=== PATIENT | male | born 1960 | race Caucasian/White ===

== ENCOUNTER 2017-03-14 13:34 | Emergency (ER) | payer OTHER ==
[2017-03-14] MEDS ORDERED: Diphtheria,Pertussis(Acell),Tetanus Vaccine 0.5 ML SDV IM ONE (14:09)
[2017-03-14] MEDS ORDERED: Lidocaine 1% 10 ML MDV INJECT ONE (14:09)
--- NOTE | 2017-03-14 14:10 | EDM.PDOC ---
ED HPI GENERAL MEDICAL PROBLEM - General Chief Complaint: Laceration Stated Complaint: RIGHT POINTER FINGER LAC Time Seen by Provider: 03/14/17 14:09 Source of Information: Reports: Patient History Limitations: Reports: No Limitations - History of Present Illness INITIAL COMMENTS - FREE TEXT/NARRATIVE: 56-year-old male presents for evaluation treatment of injury to the right hand dorsal pointer finger over the proximal pharynx. Injury occurred prior to arrival in the ER. Patient reports he was wearing gloves and was using a band saw. States that the saw cut through his gloves while he was cutting some wood. He has full range of motion. No numbness or tingling. Reports a laceration to the right hand pointer finger. Is unsure of his last tetanus. Onset: Today Location: Reports: Upper Extremity, Right - Related Data Allergies Allergy/AdvReac Type Severity Reaction Status Date / Time No Known Allergies Allergy Verified 03/14/17 13:53 Home Meds: Home Meds Albuterol Sulfate 1 inh NEB Q4H PRN 03/14/17 [History] Albuterol [Proventil HFA] 2 puff INH Q4H PRN 03/14/17 [History] Budesonide/Formoterol Fumarate [Symbicort 160-4.5 Mcg Inhaler] 2 puff INH BID [History] Cephalexin 500 mg PO BID #20 capsule 03/14/17 [Rx] Levofloxacin [IJD: Levofloxacin] 750 mg PO DAILY 03/14/17 [History] Levothyroxine 112 mcg PO DAILY 03/14/17 [History] diphenhydrAMINE [Benadryl] 25 mg PO BEDTIME 03/14/17 [History] predniSONE [Prednisone] 50 mg PO DAILY 03/14/17 [History] ED ROS GENERAL - Review of Systems Review Of Systems: See Below Musculoskeletal: Reports: Hand Pain (right hand 2nd finger laceration and pain; reports no decreased ROM) Skin: Reports: Wound (3cm laceration to the right 2nd finger dorsal side) Neurological: Denies: Numbness, Tingling ED EXAM, SKIN/RASH Exam: See Below Exam Limited By: No Limitations General Appearance: Alert, WD/WN, No Apparent Distress Ears: Normal External Exam Nose: Normal Inspection Throat/Mouth: Normal Inspection, Normal Voice, No Airway Compromise Neck: Normal Inspection Respiratory/Chest: No Respiratory Distress Cardiovascular: Normal Peripheral Pulses, Regular Rate, Rhythm Peripheral Pulses: 2+: Radial (L), Radial (R) Extremities: Normal Range of Motion (patient is able to flex, extend, adduct, abduct right hand 2nd finger; able to make a fist and oppose fingers to thumb; reports sensation to light touch to the finger; 3 cm subcutaneous laceraiotn to the right hand dorsal 2nd fingerover the proximal phalnex), Normal Capillary Refill Neurological: Alert, Normal Cognition ED SKIN PROCEDURES - Laceration/Wound Repair Right Dorsal Finger Lac/Wound length In cm: 3 Appearance: Subcutaneous, Irregular Distal NVT: Neuro & Vascular Intact, No Tendon Injury Anesthetic Type: Local Local Anesthesia - Lidocaine (Xylocaine): 1% Plain Local Anesthetic Volume: 3cc Skin Prep: Chlorhexidine (Hibiciens), Saline, Sterile Drape Exploration/Debridement/Repair: Wound Explored, No Foreign Material Found Closed with: Sutures Suture Size: 4-0 # of Sutures: 11 Suture Type: Nylon, Interrupted, Simple Suture Size: other (5-0) # of Sutures: 6 Repaired with: Vicryl Sterile Dressing Applied: Nurse Tetanus Status Addressed: Yes Complications: No Course - Vital Signs Last Recorded V/S: Last Vital Signs Temp 36.3 C 03/14/17 14:03 Pulse 76 03/14/17 14:03 Resp 16 03/14/17 14:03 BP 147/97 H 03/14/17 14:03 Pulse Ox 95 03/14/17 14:03 - Orders/Labs/Meds Meds: Medications Discontinued Medications Generic Name Dose Route Start Last Admin Trade Name Julio PRN Reason Stop Dose Admin Diphtheria/Tetanus/Acell Pertussis 0.5 ml 03/14/17 14:09 03/14/17 14:52 Adacel IM 03/14/17 14:10 0.5 ml .ONCE ONE Administration Lidocaine HCl 10 ml 03/14/17 14:09 03/14/17 14:52 Xylocaine 1% INJECT 03/14/17 14:10 10 ml ONETIME ONE Administration - Re-Assessments/Exams Free Text/Narrative Re-Assessment/Exam: 03/14/17 16:12 17 sutures placed to the right hand dorsal first finger. 6 subcutaneous and 11 cutaneous sutures placed. The patient tolerated this well. There are no combinations. Discharge instructions as documented. Departure - Departure Time of Disposition: 16:12 Disposition: Home, Self-Care 01 Condition: Good Clinical Impression: Laceration - Discharge Information Prescriptions: Cephalexin 500 mg PO BID #20 capsule Instructions: Laceration Care, Adult Referrals: Eric Unger Jr, MD [Primary Care Provider] - Forms: ED Department Discharge Additional Instructions: cephalexin PO bid x 10 days. OTC ibuprofen or Tylenol as needed for pain relief. Monitor for signs of infection such as increased swelling, pus or redness. present to the clinic or the ER should these develop. Keep the wound covered. Have the sutures removed in 10 days. Wash with gentle soap and water twice a day. your primary Care provider can do this or the [facility] clinic located on the [place] [facility] of the [facility]. There are open 8 AM to 5 PM Friday through Friday. Please call [phone] to schedule the provider there. Recommend Leonela Haywood. Please return to the ER for symptoms change or worsen.
== END 2017-03-14 16:40 | disposition home or self-care (01) ==
LOC: JD.ED 13:34
DX: S61.411A Laceration without foreign body of right hand, initial encounter (principal); W31.2XXA Contact with powered woodworking and forming machines, initial encounter; E03.9 Hypothyroidism, unspecified; Z23 Encounter for immunization
CPT/HCPCS: 12002; 13132; 90471; 90715; 99283-25

== ENCOUNTER 2018-09-17 04:21 | Observation (INO) | payer OTHER ==
--- NOTE | 2018-09-16 13:29 | PCM.PREANE ---
<Larry Helms - Last Filed: 09/17/18 08:29> Preanesthetic Assessment - Anesthesia/Transfusion/Family Hx Anesthesia History: Prior Anesthesia Without Reaction Family History of Anesthesia Reaction: No Transfusion History: No Prior Transfusion(s) Intubation History: Unknown - Review of Systems General: No Symptoms Pulmonary: No Symptoms Cardiovascular: No Symptoms Gastrointestinal: No Symptoms Neurological: Pre-Existing Deficit - Physical Assessment NPO Status Time: 09:30 Weight: 92.986 kg Airway Class: Mallampati = 2 Dentition: Reports: Normal Dentition ROM/Head Extension: Full Lungs: Clear to Auscultation, Normal Respiratory Effort Cardiovascular: Regular Rate, Regular Rhythm, No Murmurs - Lab Values: Laboratory Last Values MRSA (PCR) Negative 09/08/18 16:25 - Allergies Allergies/Adverse Reactions: Allergies Allergy/AdvReac Type Severity Reaction Status Date / Time No Known Allergies Allergy Verified 03/14/17 13:53 - Acknowledgements Additional Comments: lumbar surgery L1-2 - in PreAnesthesia Questionnaire - HOME MEDS Home Medications: Home Meds Cholecalciferol (Vitamin D3) [Vitamin D3] 5,000 units PO DAILY 09/16/18 [History ] - CURRENT (IN HOUSE) MEDS Current Meds: Current Medications Acetaminophen (Tylenol) 975 mg PO ONETIME KT Stop: 09/17/18 12:00 Aspirin (Ecotrin) 325 mg PO BID KT Bisacodyl (Dulcolax) 5 mg PO DAILY PRN PRN Reason: Constipation Morphine Sulfate 8 mg/Epinephrine HCl 0.3 mg/Cefuroxime Sodium 750 mg/Ketorolac Tromethamine 30 mg/Sodium Chloride 27.9 ml 0 mg .XX ONETIME ONE Stop: 09/17/18 10:01 Cyclobenzaprine HCl (Flexeril) 10 mg PO TID PRN PRN Reason: Spasms Docusate Sodium (Colace) 100 mg PO BID KT Famotidine (Pepcid) 20 mg PO Q12H KT Lactated Ringer's (Ringers, Lactated) 1,000 mls @ 125 mls/hr IV ASDIRECTED KT Cefazolin Sodium/Dextrose 2 gm (/ Premix) 50 mls @ 100 mls/hr IV Q8H KT Stop: 09/17/18 22:59 Ketorolac Tromethamine (Toradol) 15 mg IVPUSH Q6H PRN PRN Reason: Pain Lidocaine/Sodium Bicarbonate (Buffered Lidocaine 1% In Ns 8.4%) 0.25 ml IDERM ONETIME PRN PRN Reason: Prior to IV Start Magnesium Hydroxide (Milk Of Magnesia) 30 ml PO BID PRN PRN Reason: Constipation Morphine Sulfate (Morphine) 2 mg IVPUSH Q2H PRN PRN Reason: Breakthrough Pain Naloxone HCl (Narcan) 0.1 mg IVPUSH Q5M PRN PRN Reason: Oversedation Ondansetron HCl (Zofran) 4 mg IVPUSH Q6H PRN PRN Reason: Nausea/Vomiting Oxycodone HCl (Oxycontin) 10 mg PO ONETIME KT Stop: 09/17/18 12:00 Oxycodone/Acetaminophen (Percocet 325-5 Mg) 1 - 2 tab PO Q4H PRN PRN Reason: Pain Pregabalin (Lyrica) 50 mg PO ONETIME KT Stop: 09/17/18 12:00 Senna (Senna) 8.6 mg PO BID PRN PRN Reason: Constipation Sodium Chloride (Saline Flush) 10 ml FLUSH ASDIRECTED PRN PRN Reason: Keep Vein Open Discontinued Medications Acetaminophen (Tylenol) 650 mg PO ONETIME KT Stop: 09/17/18 12:00 <Katharina Gallagher - Last Filed: 09/17/18 09:04> Preanesthetic Assessment - Review of Systems Pulmonary: No Symptoms (1/3 can/day times 40 years) Gastrointestinal: No Symptoms (GERD on occasion) Neurological: No Symptoms (Lumbar back surgeries times 2 1987) Other: Reports: Easy Bleeding - Physical Assessment NPO Status Date: 09/16/18 NPO Status Time: 19:00 Pulse: 89 O2 Sat by Pulse Oximetry: 93 Respiratory Rate: 16 Blood Pressure: 133/93 Temperature: 36.4 C Height: 1.7 m ASA Class: 2 Mental Status: Alert & Oriented x3 Dentition: Reports: Caries Thyro-Mental Finger Breadths: 3 Mouth Opening Finger Breadths: 3 - Lab Values: Laboratory Last Values MRSA (PCR) Negative 09/08/18 16:25 All lab values reviewed and noted and within acceptable ranges to proceed with scheduled procedure. - Imaging/EKG Impressions: EKG: SR rate= 58 CXR: mild hyperinflation - Anesthesia Plan Pre-Op Medication Ordered: None, Other (preop meds: lyrica, oxycontin, tylenol at 0830) - Acknowledgements Anesthesia Type Planned: General Anesthesia, Spinal Pt an Appropriate Candidate for the Planned Anesthesia: Yes Alternatives and Risks of Anesthesia Discussed w Pt/Guardian: Yes Pt/Guardian Understands and Agrees with Anesthesia Plan: Yes PreAnesthesia Questionnaire - Past Health History Medical/Surgical History: Denies Medical/Surgical History
[2018-09-17] MEDS ORDERED: Acetaminophen 325 MG Tab PO SCH ×2 (06:00→07:05)
[2018-09-17] MEDS ORDERED: Pregabalin 25 MG Cap PO SCH (06:00)
[2018-09-17] MEDS ORDERED: oxyCODONE ER 10 MG TAB.ER PO SCH (06:00)
[2018-09-17] MEDS ORDERED: Lactated Ringers 1,000 ML IV SCH (07:12)
[2018-09-17] MEDS ORDERED: Sodium Chloride 0.9% 10 ML Syringe FLUSH PRN (07:12)
[2018-09-17] MEDS ORDERED: Lidocaine 1%/Sod Bicarbonate in NS 8.4% 1 ML Syringe IDERM PRN (07:12)
[2018-09-17] MEDS ORDERED: Midazolam 1 MG/ML 2 ML SDV IVPUSH SCH (09:15)
[2018-09-17] MEDS ORDERED: Midazolam 1 MG/ML 2 ML SDV ONE ×7 (09:30→11:08)
[2018-09-17] MEDS ORDERED: ceFAZolin 1 GM Vial ONE ×2 (09:52)
[2018-09-17] MEDS ORDERED: Ondansetron 4 MG/2 ML SDV ONE (10:05)
[2018-09-17] MEDS ORDERED: Ketorolac 30 MG/ML SDV ONE (10:06)
[2018-09-17] MEDS ORDERED: Propofol 200 MG/20 ML SDV ONE ×2 (10:11→11:24)
[2018-09-17] MEDS: Iodine/Sodium Iodide 2% Tincture 30 ML Bottle ONE ×2 (10:39→11:11)
[2018-09-17] MEDS: Bupivacaine 0.25% 30 ML SDV ONE ×2 (10:39→11:20)
[2018-09-17] MEDS: ceFAZolin 1 GM Vial ONE ×2 (10:39→11:15)
[2018-09-17] MEDS: Morphine 8 MG, EPINEPHrine 0.3 MG, Cefuroxime 750 MG, Ketorolac 30 MG, Sodium Chloride ... ONE ×10 (10:40→11:19)
[2018-09-17] MEDS: Vancomycin 1 GM SDV ONE ×2 (10:41→11:21)
[2018-09-17] MEDS ORDERED: Naloxone 0.4 MG/ML SDV IVPUSH PRN (11:00)
[2018-09-17] MEDS ORDERED: Morphine 2 MG/ML Syringe IVPUSH PRN (11:00)
[2018-09-17] MEDS ORDERED: Cyclobenzaprine 10 MG Tab PO PRN (11:00)
[2018-09-17] MEDS ORDERED: Magnesium Hydroxide 400 MG/5 ML Susp 30 ML Cup PO PRN (11:00)
[2018-09-17] MEDS ORDERED: Ondansetron 4 MG/2 ML SDV IVPUSH PRN (11:00)
[2018-09-17] MEDS ORDERED: Bisacodyl 5 MG Tab PO PRN (11:00)
[2018-09-17] MEDS ORDERED: Sennosides 8.6 MG Tab PO PRN (11:00)
[2018-09-17] MEDS ORDERED: HYDROmorphone 0.5 MG/0.5 ML Syringe ONE ×2 (11:09→11:10)
[2018-09-17] MEDS ORDERED: Flumazenil 0.1 MG/ML 5 ML MDV ONE (11:52)
--- NOTE | 2018-09-17 12:06 | PCM.POSTAN ---
POST ANESTHESIA ASSESSMENT - RESPIRATORY Respiratory Status: Respiratory Rate WNL, Airway Patent, O2 Saturation Stable, Supplemental Oxygen - CARDIOVASCULAR CV Status: Pulse Rate WNL, Blood Pressure Stable - GASTROINTESTINAL GI Status: No Symptoms - POST OP HYDRATION Hydration Status: Adequate & Stable
--- NOTE | 2018-09-17 13:33 | CR ---
Pelvis and left hip: AP view of the pelvis was obtained as well as lateral view of the left hip. Comparison: No prior hip or pelvis exam. Left hip prosthesis is seen. Components are aligned. Underlying bony structures are intact. Minimal disc space narrowing is seen superiorly within the right hip. No additional abnormality is seen. Impression: 1. Left hip prosthesis which appears satisfactory in alignment. 2. Minimal joint space narrowing within the superior right hip. 3. Pelvis and left hip study are otherwise unremarkable. Diagnostic code #2
[2018-09-17] MEDS: Ketorolac 15 MG/ML SDV IVPUSH PRN (17:43)
[2018-09-17] MEDS: ceFAZolin 2 GM in Premix Bag 1 BAG IV SCH (17:47)
[2018-09-17] MEDS: Famotidine 20 MG Tab PO SCH (20:05)
[2018-09-17] MEDS: Docusate Sodium 100 MG Cap PO SCH (20:06)
[2018-09-18] MEDS: ceFAZolin 2 GM in Premix Bag 1 BAG IV SCH ×2 (01:46→09:38)
[2018-09-18] MEDS: Acetaminophen/oxyCODONE 325-5 MG Tab PO PRN ×2 (01:50→08:21)
--- NOTE | 2018-09-18 07:53 | PCM48HPAN ---
Post Anesthesia Note - EVALUATION WITHIN 48HRS OF ANESTHETIC Vital Signs in Normal Range: Yes Patient Participated in Evaluation: Yes Respiratory Function Stable: Yes Airway Patent: Yes Cardiovascular Function Stable: Yes Hydration Status Stable: Yes Pain Control Satisfactory: Yes Nausea and Vomiting Control Satisfactory: Yes Mental Status Recovered: Yes Pulse Rate: 89 Resp Rate: 16 Temperature: 36.5 C Blood Pressure: 138/73 - COMMENTS/OBSERVATIONS Free Text/Narrative:: no anesthesia complications noted
--- NOTE | 2018-09-18 08:04 | PCM.SURGPN ---
- General Info Date of Service: 09/18/18 POD#: 1 Functional Status: Reports: Pain Controlled, Tolerating Diet, Ambulating, Urinating, Incentive Spirometry, Other (Nursing and the pt state the pt has been doing well. ) - Patient Data Vitals - Most Recent: Last Vital Signs Temp 97.7 F 09/18/18 07:53 Pulse 89 09/18/18 07:53 Resp 16 09/18/18 07:53 BP 138/73 09/18/18 07:53 Pulse Ox 92 L 09/18/18 06:26 Weight - Most Recent: 213 lb 14.4 oz I&O - Last 24 Hours: Intake & Output 09/17/18 09/18/18 09/18/18 22:59 06:59 14:59 Intake Total 1400 1300 Output Total 450 Balance 1400 850 Lab Results Last 24 Hrs: Laboratory Results - last 24 hr 09/17/18 09/17/18 09/17/18 Range/Units 08:20 08:20 08:20 WBC (4.23-9.07) K/mm3 RBC (4.63-6.08) M/mm3 Hgb (13.7-17.5) gm/L Hct (40.1-51.0) % MCV (79.0-92.2) fl MCH (25.7-32.2) pg MCHC (32.2-35.5) g/dl RDW Std Deviation (35.1-43.9) fL Plt Count (163-337) K/mm3 MPV (9.4-12.3) fl PT 10.6 (9.5-12.1) SECONDS INR 0.97 APTT 28 (24-31) SECONDS Sodium (136-145) mEq/L Potassium (3.5-5.1) mEq/L Chloride (98-107) mEq/L Carbon Dioxide (21-32) mEq/L Anion Gap (5-15) BUN (7-18) mg/dL Creatinine (0.7-1.3) mg/dL Est Cr Clr Drug Dosing mL/min Estimated GFR (MDRD) (>60) mL/min BUN/Creatinine Ratio (14-18) Glucose (74-106) mg/dL Calcium (8.5-10.1) mg/dL Total Bilirubin (0.2-1.0) mg/dL AST (15-37) U/L ALT (16-63) U/L Alkaline Phosphatase (46-116) U/L Total Protein (6.4-8.2) g/dl Albumin (3.4-5.0) g/dl Globulin gm/dL Albumin/Globulin Ratio (1-2) Blood Type B NEGATIVE Gel Antibody Screen Negative 09/18/18 09/18/18 Range/Units 05:38 05:38 WBC 8.84 (4.23-9.07) K/mm3 RBC 4.15 L (4.63-6.08) M/mm3 Hgb 12.9 L (13.7-17.5) gm/L Hct 38.1 L (40.1-51.0) % MCV 91.8 (79.0-92.2) fl MCH 31.1 (25.7-32.2) pg MCHC 33.9 (32.2-35.5) g/dl RDW Std Deviation 38.8 (35.1-43.9) fL Plt Count 224 (163-337) K/mm3 MPV 9.3 L (9.4-12.3) fl PT (9.5-12.1) SECONDS INR APTT (24-31) SECONDS Sodium 134 L (136-145) mEq/L Potassium 4.5 (3.5-5.1) mEq/L Chloride 101 (98-107) mEq/L Carbon Dioxide 26 (21-32) mEq/L Anion Gap 11.5 (5-15) BUN 23 H (7-18) mg/dL Creatinine 1.3 (0.7-1.3) mg/dL Est Cr Clr Drug Dosing 57.91 mL/min Estimated GFR (MDRD) 57 (>60) mL/min BUN/Creatinine Ratio 17.7 (14-18) Glucose 114 H (74-106) mg/dL Calcium 8.8 (8.5-10.1) mg/dL Total Bilirubin 0.4 (0.2-1.0) mg/dL AST 26 (15-37) U/L ALT 22 (16-63) U/L Alkaline Phosphatase 42 L (46-116) U/L Total Protein 6.2 L (6.4-8.2) g/dl Albumin 3.0 L (3.4-5.0) g/dl Globulin 3.2 gm/dL Albumin/Globulin Ratio 0.9 L (1-2) Blood Type Gel Antibody Screen Med Orders - Current: Current Medications Aspirin (Ecotrin) 325 mg PO BID [facility] Bisacodyl (Dulcolax) 5 mg PO DAILY PRN PRN Reason: Constipation Cyclobenzaprine HCl (Flexeril) 10 mg PO TID PRN PRN Reason: Spasms Docusate Sodium (Colace) 100 mg PO BID [facility] Last Admin: 09/17/18 20:06 Dose: 100 mg Famotidine (Pepcid) 20 mg PO Q12H [facility] Last Admin: 09/17/18 20:05 Dose: 20 mg Cefazolin Sodium/Dextrose 2 gm (/ Premix) 50 mls @ 100 mls/hr IV Q8H [facility] Stop: 09/18/18 10:29 Last Admin: 09/18/18 01:46 Dose: 100 mls/hr Ketorolac Tromethamine (Toradol) 15 mg IVPUSH Q6H PRN PRN Reason: Pain Last Admin: 09/17/18 17:43 Dose: 15 mg Magnesium Hydroxide (Milk Of Magnesia) 30 ml PO BID PRN PRN Reason: Constipation Morphine Sulfate (Morphine) 2 mg IVPUSH Q2H PRN PRN Reason: Breakthrough Pain Naloxone HCl (Narcan) 0.1 mg IVPUSH Q5M PRN PRN Reason: Oversedation Ondansetron HCl (Zofran) 4 mg IVPUSH Q6H PRN PRN Reason: Nausea/Vomiting Oxycodone/Acetaminophen (Percocet 325-5 Mg) 1 - 2 tab PO Q4H PRN PRN Reason: Pain Last Admin: 09/18/18 01:50 Dose: 1 tab Senna (Senna) 8.6 mg PO BID PRN PRN Reason: Constipation Sodium Chloride (Saline Flush) 10 ml FLUSH ASDIRECTED PRN PRN Reason: Keep Vein Open Discontinued Medications Acetaminophen (Tylenol) 975 mg PO ONETIME [facility] Stop: 09/17/18 12:00 Last Admin: 09/17/18 08:29 Dose: 975 mg Bupivacaine HCl (Marcaine 0.25%) Confirm Administered Dose 30 ml .ROUTE .STK- MED ONE Stop: 09/17/18 08:29 Last Admin: 09/17/18 11:20 Dose: 30 ml Cefazolin Sodium (Ancef) Confirm Administered Dose 2 gm .ROUTE .STK-MED ONE Stop: 09/17/18 08:29 Last Admin: 09/17/18 11:15 Dose: 2 gm Cefazolin Sodium (Ancef) Confirm Administered Dose 1 gm .ROUTE .STK-MED ONE Stop: 09/17/18 09:53 Cefazolin Sodium (Ancef) Confirm Administered Dose 1 gm .ROUTE .STK-MED ONE Stop: 09/17/18 09:53 Morphine Sulfate 8 mg/Epinephrine HCl 0.3 mg/Cefuroxime Sodium 750 mg/Ketorolac Tromethamine 30 mg/Sodium Chloride 27.9 ml 0 mg .XX ONETIME ONE Stop: 09/17/18 10:01 Last Admin: 09/17/18 11:19 Dose: 788.3 mg Flumazenil (Romazicon) Confirm Administered Dose 0.5 mg .ROUTE .[facility]-MED ONE Stop: 09/17/18 11:53 Hydromorphone HCl (Dilaudid) Confirm Administered Dose 0.5 mg .ROUTE .STK-MED ONE Stop: 09/17/18 11:10 Hydromorphone HCl (Dilaudid) Confirm Administered Dose 0.5 mg .ROUTE .K-MED ONE Stop: 09/17/18 11:11 Lactated Ringer's (Ringers, Lactated) 1,000 mls @ 125 mls/hr IV ASDIRECTED KT Stop: 09/17/18 23:00 Last Admin: 09/17/18 08:20 Dose: 125 mls/hr Iodine (Iodine 2% Mild Tincture) Confirm Administered Dose 30 ml .ROUTE .STK- MED ONE Stop: 09/17/18 08:29 Last Admin: 09/17/18 11:11 Dose: 18 ml Ketorolac Tromethamine (Toradol) Confirm Administered Dose 30 mg .ROUTE .[facility]- MED ONE Stop: 09/17/18 10:07 Lidocaine/Sodium Bicarbonate (Buffered Lidocaine 1% In Ns 8.4%) 0.25 ml IDERM ONETIME PRN PRN Reason: Prior to IV Start Stop: 09/17/18 14:00 Last Admin: 09/17/18 08:20 Dose: 0.25 ml Midazolam HCl (Versed 1 Mg/Ml) 2 mg IVPUSH ONETIME KT Stop: 09/17/18 14:00 Last Admin: 09/17/18 09:22 Dose: 2 mg Midazolam HCl (Versed 1 Mg/Ml) Confirm Administered Dose 2 mg .ROUTE .STK-MED ONE Stop: 09/17/18 09:31 Midazolam HCl (Versed 1 Mg/Ml) Confirm Administered Dose 2 mg .ROUTE .STK-MED ONE Stop: 09/17/18 09:54 Midazolam HCl (Versed 1 Mg/Ml) Confirm Administered Dose 2 mg .ROUTE .STK-MED ONE Stop: 09/17/18 10:09 Midazolam HCl (Versed 1 Mg/Ml) Confirm Administered Dose 2 mg .ROUTE .STK-MED ONE Stop: 09/17/18 10:10 Midazolam HCl (Versed 1 Mg/Ml) Confirm Administered Dose 2 mg .ROUTE .STK-MED ONE Stop: 09/17/18 10:37 Midazolam HCl (Versed 1 Mg/Ml) Confirm Administered Dose 2 mg .ROUTE .STK-MED ONE Stop: 09/17/18 11:08 Midazolam HCl (Versed 1 Mg/Ml) Confirm Administered Dose 2 mg .ROUTE .STK-MED ONE Stop: 09/17/18 11:09 Ondansetron HCl (Zofran) Confirm Administered Dose 4 mg .ROUTE .STK-MED ONE Stop: 09/17/18 10:06 Oxycodone HCl (Oxycontin) 10 mg PO ONETIME [facility] Stop: 09/17/18 12:00 Last Admin: 09/17/18 08:30 Dose: 10 mg Pregabalin (Lyrica) 50 mg PO ONETIME [facility] Stop: 09/17/18 12:00 Last Admin: 09/17/18 08:30 Dose: 50 mg Propofol (Diprivan 20 Ml) Confirm Administered Dose 200 mg .ROUTE .STK-MED ONE Stop: 09/17/18 10:12 Propofol (Diprivan 20 Ml) Confirm Administered Dose 200 mg .ROUTE .STK-MED ONE Stop: 09/17/18 11:25 Tranexamic Acid (Cyklokapron) Confirm Administered Dose 1,000 mg .ROUTE .STK- MED ONE Stop: 09/17/18 08:28 Last Admin: 09/17/18 11:22 Dose: 1,000 mg Vancomycin HCl (Vancomycin) Confirm Administered Dose 1 gm .ROUTE .STK-MED ONE Stop: 09/17/18 08:29 Last Admin: 09/17/18 11:21 Dose: 1 gm - Exam Wound/Incisions: Dressing Dry and Intact General: Alert, Cooperative, No Acute Distress Lungs: Normal Respiratory Effort Extremities: Other (NVS intact for LLE. Left thigh soft, nontender. Corine's negative.) - Problem List Review Problem List Initiated/Reviewed/Updated: Yes - My Orders Last 24 Hours: Active Orders 24 hr Category Date Time Status Patient Status [ADT] Routine ADT 09/17/18 13:29 Active Ready for Discharge [RC] PER UNIT ROUTINE Care 09/18/18 08:02 Ordered Regular Diet [DIET] Diet 09/17/18 Lunch Active Acetaminophen/oxyCODONE [Percocet 325-5 MG] Med 09/17/18 11:00 Active 1 - 2 tab PO Q4H PRN Aspirin [Ecotrin] Med 09/18/18 09:00 Active 325 mg PO BID Bisacodyl [Dulcolax] Med 09/17/18 11:00 Active 5 mg PO DAILY PRN Cyclobenzaprine [Flexeril] Med 09/17/18 11:00 Active 10 mg PO TID PRN Docusate Sodium [Colace] Med 09/17/18 21:00 Active 100 mg PO BID Famotidine [Pepcid] Med 09/17/18 21:00 Active 20 mg PO Q12H Ketorolac [Toradol] Med 09/17/18 11:00 Active 15 mg IVPUSH Q6H PRN Magnesium Hydroxide [Milk of Magnesia] Med 09/17/18 11:00 Active 30 ml PO BID PRN Morphine Med 09/17/18 11:00 Active 2 mg IVPUSH Q2H PRN Naloxone [Narcan] Med 09/17/18 11:00 Active 0.1 mg IVPUSH Q5M PRN Ondansetron [Zofran] Med 09/17/18 11:00 Active 4 mg IVPUSH Q6H PRN Sennosides [Senna] Med 09/17/18 11:00 Active 8.6 mg PO BID PRN Sodium Chloride 0.9% [Saline Flush] Med 09/17/18 07:12 Active 10 ml FLUSH ASDIRECTED PRN ceFAZolin [Ancef] 2 gm Med 09/17/18 18:00 Active Premix Bag 1 bag IV Q8H Peripheral IV Insertion Adult [OM.PC] Routine Oth 09/17/18 07:12 Ordered Medication Orders Aspirin (Ecotrin) 325 mg PO BID KT Bisacodyl (Dulcolax) 5 mg PO DAILY PRN PRN Reason: Constipation Cyclobenzaprine HCl (Flexeril) 10 mg PO TID PRN PRN Reason: Spasms Docusate Sodium (Colace) 100 mg PO BID [facility] Last Admin: 09/17/18 20:06 Dose: 100 mg Famotidine (Pepcid) 20 mg PO Q12H [facility] Last Admin: 09/17/18 20:05 Dose: 20 mg Cefazolin Sodium/Dextrose 2 gm (/ Premix) 50 mls @ 100 mls/hr IV Q8H [facility] Stop: 09/18/18 10:29 Last Admin: 09/18/18 01:46 Dose: 100 mls/hr Infusion: 09/17/18 18:17 Dose: 100 mls/hr Admin: 09/17/18 17:47 Dose: 100 mls/hr Ketorolac Tromethamine (Toradol) 15 mg IVPUSH Q6H PRN PRN Reason: Pain Last Admin: 09/17/18 17:43 Dose: 15 mg Magnesium Hydroxide (Milk Of Magnesia) 30 ml PO BID PRN PRN Reason: Constipation Morphine Sulfate (Morphine) 2 mg IVPUSH Q2H PRN PRN Reason: Breakthrough Pain Naloxone HCl (Narcan) 0.1 mg IVPUSH Q5M PRN PRN Reason: Oversedation Ondansetron HCl (Zofran) 4 mg IVPUSH Q6H PRN PRN Reason: Nausea/Vomiting Oxycodone/Acetaminophen (Percocet 325-5 Mg) 1 - 2 tab PO Q4H PRN PRN Reason: Pain Last Admin: 09/18/18 01:50 Dose: 1 tab Senna (Senna) 8.6 mg PO BID PRN PRN Reason: Constipation Sodium Chloride (Saline Flush) 10 ml FLUSH ASDIRECTED PRN PRN Reason: Keep Vein Open - Assessment Assessment (Free Text/Narrative):: POD#1 - s/p left BOBBY - Plan Plan (Free Text/Narrative):: 1. Hgb 12.9. 2. ASA PO BID, frequent mobility, TEDs. 3. BOBBY precautions. 4. Discharge to home today. The pt's case was discussed with Dr. Freedman.
--- NOTE | 2018-09-18 08:07 | PCM.DCSUM1 ---
Discharge Summary - Hospital Course Brief History: Adrian is a 57 yo male who underwent left BOBBY with Dr. Freedman on . The procedure was completed under spinal anesthesia with sedation. The pt tolerated the procedure well and was admitted to the Medical-Surgical Unit. The pt's Hgb on POD#1 was 12.9. On POD#1, 325mg ASA BID was initiated for VTE prophylaxis. SCDs and TEDs were also ordered. A Mepilex dressing was placed at the incision site at the time of surgery and remained clean and dry. The pt participated in P.T. and O.T. and progressed well. He followed the BOBBY precautions. The pt was allowed to WBAT. On POD#1, the pt was deemed appropriate to discharge to home. - Discharge Data Discharge Date: 09/18/18 Discharge Disposition: Home, Self-Care 01 Condition: Good - Patient Summary/Data Consults: Consultations 09/17/18 06:25 OT Evaluation and Treatment [CONS] Routine PT Evaluation and Treatment [CONS] Routine - Patient Instructions Diet: Usual Diet as Tolerated Activity: Apply Ice, As Tolerated, Elevate Extremity, Full Weight Bearing Activity, Other: Follow the total hip precautions. Driving: Do Not Drive Showering/Bathing: May Shower Wound/Incision Care: Keep Operative Site/Wound Site Clean and Dry, Do NOT Change Dressing Notify Provider of: Fever, Increased Pain, Swelling and Redness, Drainage, Nausea and/or Vomiting Other/Special Instructions: Please get up and moving around EVERY HOUR while awake. This helps to prevent blood clots. Please use your walker and have help with mobility as needed. Take a short walk in your home every hour while awake. Please take 325mg Aspirin TWICE daily. The aspirin is being used for blood clot prevention and not for pain management so please do not miss a dose of the medication. You could use a medication like Zantac or Pepcid and a medication like Prilosec or Nexium to protect your stomach while you are using the aspirin. At home, please complete the exercises that you learned during the Hospital stay. Schedule for physical therapy. Use the pain medication as needed. The medication may cause drowsiness and constipation. Contact your primary care provider for instructions if you are constipated. You may use a stool softener like docusate sodium or Colace 100mg twice daily and/or a laxative like Miralax daily for constipation. Increase your water and fiber intake while you are using the pain medication. Discontinue use of the pain medication as soon as able. Please do not use other medications that may cause drowsiness (other pain medications, anxiety pills, cold medications, sleeping pills, etc) while using the prescription pain medication. Do not use alcohol while using the pain medication. You may use acetaminophen or Tylenol for pain management, however, please ensure you are not using over 4000 mg or 4 grams of acetaminophen per day from all sources. Your pain medication has 325mg of acetaminophen per tablet. At this time, please do not use ibuprofen (Motrin, Advil) or naproxen (Aleve) for pain management as you are using the aspirin. When the aspirin course is completed in 4 to 6 weeks, you could use ibuprofen or naproxen for pain management (if this is allowed by your primary care provider). Wear the AUR[place]A hose during the day and you may remove these at night. Elevate the limb to decrease swelling. Place ice to the area often. Place a towel between your skin and the blue pad. Use the incentive spirometer often. Take deep breaths throughout the day. Please keep the dressing in place until follow-up. Notify the Clinic if the dressing becomes saturated. Increase your protein intake while you are healing. If you have diabetes, please closely monitor your blood sugars and notify your primary care provider with abnormal values. Elevated blood sugars increases the risk of infection. Call the Clinic with questions or concerns - [phone]. - Discharge Plan *PRESCRIPTION DRUG MONITORING PROGRAM REVIEWED*: No *COPY OF PRESCRIPTION DRUG MONITORING REPORT IN PATIENT RUSSELL: No Prescriptions/Med Rec: Acetaminophen/oxyCODONE [Percocet 325-5 MG] 1 - 2 tab PO Q4H PRN #60 tablet PRN Reason: Pain Aspirin [Ecotrin] 325 mg PO BID #84 tab.ec Cyclobenzaprine [Flexeril] 10 mg PO TID PRN #40 tablet PRN Reason: Spasms Home Medications: Home Meds Cholecalciferol (Vitamin D3) [Vitamin D3] 5,000 units PO DAILY 09/16/18 [History ] Acetaminophen/oxyCODONE [Percocet 325-5 MG] 1 - 2 tab PO Q4H PRN #60 tablet [Rx] Aspirin [Ecotrin] 325 mg PO BID #84 tab.ec 09/17/18 [Rx] Bisacodyl [Dulcolax] 5 mg PO DAILY PRN tablet 09/17/18 [Rx] Cyclobenzaprine [Flexeril] 10 mg PO TID PRN #40 tablet 09/17/18 [Rx] Docusate Sodium [Colace] 100 mg PO BID cap 09/17/18 [Rx] Famotidine [Pepcid] 20 mg PO Q12H tablet 09/17/18 [Rx] Magnesium Hydroxide [Milk of Magnesia] 30 ml PO BID PRN cup 09/17/18 [Rx] Sennosides [Senna] 8.6 mg PO BID PRN tablet 09/17/18 [Rx] Referrals: Cheryl Tenorio PA-C [Physician Archivist] - - Discharge Summary/Plan Comment DC Time >30 min.: No - Patient Data Vitals - Most Recent: Last Vital Signs Temp 97.7 F 09/18/18 07:53 Pulse 89 09/18/18 07:53 Resp 16 09/18/18 07:53 BP 138/73 09/18/18 07:53 Pulse Ox 92 L 09/18/18 06:26 Weight - Most Recent: 213 lb 14.4 oz I&O - Last 24 hours: Intake & Output 09/17/18 09/18/18 09/18/18 22:59 06:59 14:59 Intake Total 1400 1300 Output Total 450 Balance 1400 850 Lab Results - Last 24 hrs: Laboratory Results - last 24 hr 09/17/18 09/17/18 09/17/18 Range/Units 08:20 08:20 08:20 WBC (4.23-9.07) K/mm3 RBC (4.63-6.08) M/mm3 Hgb (13.7-17.5) gm/L Hct (40.1-51.0) % MCV (79.0-92.2) fl MCH (25.7-32.2) pg MCHC (32.2-35.5) g/dl RDW Std Deviation (35.1-43.9) fL Plt Count (163-337) K/mm3 MPV (9.4-12.3) fl PT 10.6 (9.5-12.1) SECONDS INR 0.97 APTT 28 (24-31) SECONDS Sodium (136-145) mEq/L Potassium (3.5-5.1) mEq/L Chloride (98-107) mEq/L Carbon Dioxide (21-32) mEq/L Anion Gap (5-15) BUN (7-18) mg/dL Creatinine (0.7-1.3) mg/dL Est Cr Clr Drug Dosing mL/min Estimated GFR (MDRD) (>60) mL/min BUN/Creatinine Ratio (14-18) Glucose (74-106) mg/dL Calcium (8.5-10.1) mg/dL Total Bilirubin (0.2-1.0) mg/dL AST (15-37) U/L ALT (16-63) U/L Alkaline Phosphatase (46-116) U/L Total Protein (6.4-8.2) g/dl Albumin (3.4-5.0) g/dl Globulin gm/dL Albumin/Globulin Ratio (1-2) Blood Type B NEGATIVE Gel Antibody Screen Negative 09/18/18 09/18/18 Range/Units 05:38 05:38 WBC 8.84 (4.23-9.07) K/mm3 RBC 4.15 L (4.63-6.08) M/mm3 Hgb 12.9 L (13.7-17.5) gm/L Hct 38.1 L (40.1-51.0) % MCV 91.8 (79.0-92.2) fl MCH 31.1 (25.7-32.2) pg MCHC 33.9 (32.2-35.5) g/dl RDW Std Deviation 38.8 (35.1-43.9) fL Plt Count 224 (163-337) K/mm3 MPV 9.3 L (9.4-12.3) fl PT (9.5-12.1) SECONDS INR APTT (24-31) SECONDS Sodium 134 L (136-145) mEq/L Potassium 4.5 (3.5-5.1) mEq/L Chloride 101 (98-107) mEq/L Carbon Dioxide 26 (21-32) mEq/L Anion Gap 11.5 (5-15) BUN 23 H (7-18) mg/dL Creatinine 1.3 (0.7-1.3) mg/dL Est Cr Clr Drug Dosing 57.91 mL/min Estimated GFR (MDRD) 57 (>60) mL/min BUN/Creatinine Ratio 17.7 (14-18) Glucose 114 H (74-106) mg/dL Calcium 8.8 (8.5-10.1) mg/dL Total Bilirubin 0.4 (0.2-1.0) mg/dL AST 26 (15-37) U/L ALT 22 (16-63) U/L Alkaline Phosphatase 42 L (46-116) U/L Total Protein 6.2 L (6.4-8.2) g/dl Albumin 3.0 L (3.4-5.0) g/dl Globulin 3.2 gm/dL Albumin/Globulin Ratio 0.9 L (1-2) Blood Type Gel Antibody Screen Med Orders - Current: Current Medications Aspirin (Ecotrin) 325 mg PO BID KT Bisacodyl (Dulcolax) 5 mg PO DAILY PRN PRN Reason: Constipation Cyclobenzaprine HCl (Flexeril) 10 mg PO TID PRN PRN Reason: Spasms Docusate Sodium (Colace) 100 mg PO BID [facility] Last Admin: 09/17/18 20:06 Dose: 100 mg Famotidine (Pepcid) 20 mg PO Q12H [facility] Last Admin: 09/17/18 20:05 Dose: 20 mg Cefazolin Sodium/Dextrose 2 gm (/ Premix) 50 mls @ 100 mls/hr IV Q8H [facility] Stop: 09/18/18 10:29 Last Admin: 09/18/18 01:46 Dose: 100 mls/hr Ketorolac Tromethamine (Toradol) 15 mg IVPUSH Q6H PRN PRN Reason: Pain Last Admin: 09/17/18 17:43 Dose: 15 mg Magnesium Hydroxide (Milk Of Magnesia) 30 ml PO BID PRN PRN Reason: Constipation Morphine Sulfate (Morphine) 2 mg IVPUSH Q2H PRN PRN Reason: Breakthrough Pain Naloxone HCl (Narcan) 0.1 mg IVPUSH Q5M PRN PRN Reason: Oversedation Ondansetron HCl (Zofran) 4 mg IVPUSH Q6H PRN PRN Reason: Nausea/Vomiting Oxycodone/Acetaminophen (Percocet 325-5 Mg) 1 - 2 tab PO Q4H PRN PRN Reason: Pain Last Admin: 09/18/18 01:50 Dose: 1 tab Senna (Senna) 8.6 mg PO BID PRN PRN Reason: Constipation Sodium Chloride (Saline Flush) 10 ml FLUSH ASDIRECTED PRN PRN Reason: Keep Vein Open Discontinued Medications Acetaminophen (Tylenol) 975 mg PO ONETIME KT Stop: 09/17/18 12:00 Last Admin: 09/17/18 08:29 Dose: 975 mg Bupivacaine HCl (Marcaine 0.25%) Confirm Administered Dose 30 ml .ROUTE .STK- MED ONE Stop: 09/17/18 08:29 Last Admin: 09/17/18 11:20 Dose: 30 ml Cefazolin Sodium (Ancef) Confirm Administered Dose 2 gm .ROUTE .STK-MED ONE Stop: 09/17/18 08:29 Last Admin: 09/17/18 11:15 Dose: 2 gm Cefazolin Sodium (Ancef) Confirm Administered Dose 1 gm .ROUTE .STK-MED ONE Stop: 09/17/18 09:53 Cefazolin Sodium (Ancef) Confirm Administered Dose 1 gm .ROUTE .STK-MED ONE Stop: 09/17/18 09:53 Morphine Sulfate 8 mg/Epinephrine HCl 0.3 mg/Cefuroxime Sodium 750 mg/Ketorolac Tromethamine 30 mg/Sodium Chloride 27.9 ml 0 mg .XX ONETIME ONE Stop: 09/17/18 10:01 Last Admin: 09/17/18 11:19 Dose: 788.3 mg Flumazenil (Romazicon) Confirm Administered Dose 0.5 mg .ROUTE .STK-MED ONE Stop: 09/17/18 11:53 Hydromorphone HCl (Dilaudid) Confirm Administered Dose 0.5 mg .ROUTE .STK-MED ONE Stop: 09/17/18 11:10 Hydromorphone HCl (Dilaudid) Confirm Administered Dose 0.5 mg .ROUTE .STK-MED ONE Stop: 09/17/18 11:11 Lactated Ringer's (Ringers, Lactated) 1,000 mls @ 125 mls/hr IV ASDIRECTED KT Stop: 09/17/18 23:00 Last Admin: 09/17/18 08:20 Dose: 125 mls/hr Iodine (Iodine 2% Mild Tincture) Confirm Administered Dose 30 ml .ROUTE .STK- MED ONE Stop: 09/17/18 08:29 Last Admin: 09/17/18 11:11 Dose: 18 ml Ketorolac Tromethamine (Toradol) Confirm Administered Dose 30 mg .ROUTE .STK- MED ONE Stop: 09/17/18 10:07 Lidocaine/Sodium Bicarbonate (Buffered Lidocaine 1% In Ns 8.4%) 0.25 ml IDERM ONETIME PRN PRN Reason: Prior to IV Start Stop: 09/17/18 14:00 Last Admin: 09/17/18 08:20 Dose: 0.25 ml Midazolam HCl (Versed 1 Mg/Ml) 2 mg IVPUSH ONETIME KT Stop: 09/17/18 14:00 Last Admin: 09/17/18 09:22 Dose: 2 mg Midazolam HCl (Versed 1 Mg/Ml) Confirm Administered Dose 2 mg .ROUTE .STK-MED ONE Stop: 09/17/18 09:31 Midazolam HCl (Versed 1 Mg/Ml) Confirm Administered Dose 2 mg .ROUTE .STK-MED ONE Stop: 09/17/18 09:54 Midazolam HCl (Versed 1 Mg/Ml) Confirm Administered Dose 2 mg .ROUTE .STK-MED ONE Stop: 09/17/18 10:09 Midazolam HCl (Versed 1 Mg/Ml) Confirm Administered Dose 2 mg .ROUTE .STK-MED ONE Stop: 09/17/18 10:10 Midazolam HCl (Versed 1 Mg/Ml) Confirm Administered Dose 2 mg .ROUTE .STK-MED ONE Stop: 09/17/18 10:37 Midazolam HCl (Versed 1 Mg/Ml) Confirm Administered Dose 2 mg .ROUTE .STK-MED ONE Stop: 09/17/18 11:08 Midazolam HCl (Versed 1 Mg/Ml) Confirm Administered Dose 2 mg .ROUTE .STK-MED ONE Stop: 09/17/18 11:09 Ondansetron HCl (Zofran) Confirm Administered Dose 4 mg .ROUTE .STK-MED ONE Stop: 09/17/18 10:06 Oxycodone HCl (Oxycontin) 10 mg PO ONETIME [facility] Stop: 09/17/18 12:00 Last Admin: 09/17/18 08:30 Dose: 10 mg Pregabalin (Lyrica) 50 mg PO ONETIME [facility] Stop: 09/17/18 12:00 Last Admin: 09/17/18 08:30 Dose: 50 mg Propofol (Diprivan 20 Ml) Confirm Administered Dose 200 mg .ROUTE .STK-MED ONE Stop: 09/17/18 10:12 Propofol (Diprivan 20 Ml) Confirm Administered Dose 200 mg .ROUTE .STK-MED ONE Stop: 09/17/18 11:25 Tranexamic Acid (Cyklokapron) Confirm Administered Dose 1,000 mg .ROUTE .[facility]- MED ONE Stop: 09/17/18 08:28 Last Admin: 09/17/18 11:22 Dose: 1,000 mg Vancomycin HCl (Vancomycin) Confirm Administered Dose 1 gm .ROUTE .STK-MED ONE Stop: 09/17/18 08:29 Last Admin: 09/17/18 11:21 Dose: 1 gm
[2018-09-18] MEDS: Ketorolac 15 MG/ML SDV IVPUSH PRN (08:23)
[2018-09-18] MEDS ORDERED: Aspirin 325 MG Tab.EC PO SCH (09:00)
[2018-09-18] MEDS: Famotidine 20 MG Tab PO SCH (09:37)
[2018-09-18] MEDS: Docusate Sodium 100 MG Cap PO SCH (09:37)
--- NOTE | 2018-09-21 17:13 | PCM.OPNOTE ---
- General Post-Op/Procedure Note Date of Surgery/Procedure: 09/17/18 Operative Procedure(s): left total hip arthroplasty Pre Op Diagnosis: left hip osteoarthrosis Post-Op Diagnosis: Same Anesthesia Technique: Local, MAC, Spinal Primary Surgeon: Jaden Freedman Anesthesia Provider: Larry Helms Internal Grinder: Cheryl Tenorio Internal Grinder: Adrianne King EBHyun in mLs: 50 Complications: None Condition: Good Free Text/Narrative:: 58 cup size 5 stem mdm
--- NOTE | 2018-09-22 14:30 | OR ---
DATE OF OPERATION: 09/17/2018 SURGEON: Jaden Freedman MD OPERATION PERFORMED: Left total hip arthroplasty. PREOPERATIVE DIAGNOSIS: Left hip osteoarthrosis. POSTOPERATIVE DIAGNOSIS: Left hip osteoarthrosis. ANESTHESIA: Local MAC with spinal. ANESTHESIA PROVIDER: Larry Helms CRNA. ASSISTANTS: Cheryl Tenorio PA-C; and Adrianne King LPN. ESTIMATED BLOOD LOSS: 50 mL. COMPLICATIONS: None. CONDITION: Stable. IMPLANTS: 1. Staci size 58 mm Tritanium II acetabular cup. 2. [place] size 5 Accolade II stem. 3. [place] size 28 size 48 MDM components, +0. DESCRIPTION OF PROCEDURE: The patient was identified in the preop holding area. Proper site was marked and identified by the surgeon. The patient was taken back to the operating theater where after adequate anesthesia, the patient was placed in a right lateral decubitus position. The patient had axillary roll placed and pegs placed and all bony prominences were well padded. The patient's left hip was then parallel to the floor. The left hip was then sterilely prepped and draped in the usual sterile fashion. OR time-out was performed. The patient received 2 g IV Ancef. Standard posterior incision was made centered over the greater trochanter. This was taken down to the IT band and gluteal fascia, which was incised along the incisional length. Charnley retractor was then placed. Short external rotators were identified and takedown of short external rotators was done for the level of the piriformis down to the level of the lesser trochanter along with the capsulotomy. The hip was then dislocated. The neck cut was then completed and found to be adequate. The patient was noted to have a very long neck with a deep socket. At this time, attention was turned to the acetabulum. Starting with a 52 reamer, I was able to ream up to a 58, which was found to have good purchase. A 58 mm Tritanium II acetabular cup was then impacted into place in roughly 45 to 50 degrees of abduction and 20 to 30 degrees of anteversion. The MDM liner was then impacted into place. Attention was turned to the femur. Starter awl was placed down the canal. Starting with a zero broach, I was able to broach up to a size 5, which was found to be rotationally and vertically stable. We put a trial neck on along with the MDM components. A +0 was found to have adequate buddhist of leg lengths and was stable throughout range of motion. At this time, a size 5 Accolade II stem was impacted into place, and the MDM components were constructed on the back table with 28/48 mm shell +0. These were then impacted on the Accolade II stem. The hip was then relocated. A #5 Ethibond suture was used for short external rotators and capsule. Topical tranexamic acid was placed along with periarticular injection after 1 L dilute Betadine solution and 3 L of pulse lavage irrigation was irrigated through the hip. Periarticular injection was also completed. At this time, a #2 barbed suture was used for closure of the IT band and gluteal fascia, 2-0 Vicryl was used subcutaneously, and Prineo was used for the skin. The patient had a sterile soft dressing applied and was sent to the PACU in stable condition. TERRELL /[id number]
== END 2018-09-18 11:50 | disposition home or self-care (01) ==
LOC: JD.MS 07:58 → PREINTOOBSV 08:47 → JD.MS 09:32
PROVIDERS: ADMIT Orthopaedic Surgery; ATTEND Orthopaedic Surgery
DX: M16.12 Unilateral primary osteoarthritis, left hip (principal); F17.220 Nicotine dependence, chewing tobacco, uncomplicated; M10.9 Gout, unspecified; E66.3 Overweight; Z68.35 Body mass index [BMI] 35.0-35.9, adult; Z79.899 Other long term (current) drug therapy
CPT/HCPCS: 27130; 36415; 73501; 80053; 85027; 85610; 85730; 86850; 86900; 86901; 87641; 97110; 97116; 97161; 97165; 97535; A9270; C1776; G0378; J0171; J0690; J0697; J1170; J1885; J2250; J2270; J2405; J2704; J3370; J3490; J7120; 01214

== ENCOUNTER 2021-02-09 09:21 | Inpatient (IN) | payer OTHER ==
[2021-02-09] MEDS ORDERED: Sodium Chloride 0.9% 10 ML Syringe FLUSH PRN ×2 (10:01→11:23)
[2021-02-09] MEDS ORDERED: Albuterol/Ipratropium 3.0-0.5 MG/3 ML Neb Soln NEB ONE (10:02)
[2021-02-09] MEDS ORDERED: Sodium Chloride 0.9% 1,000 ML IV SCH (10:15)
[2021-02-09] MEDS ORDERED: Iopamidol 755 Mg/ML 100 ML Bottle IVPUSH ONE (11:23)
[2021-02-09] MEDS ORDERED: Sodium Chloride 0.9% 100 ML IV SCH (11:30)
--- NOTE | 2021-02-09 11:43 | CR ---
Chest: Frontal view of the chest was obtained. Comparison: No prior chest imaging is available. Patchy areas of increased density are seen on both sides of the chest. Heart size and mediastinum are normal. No acute osseous abnormality is appreciated. Impression: 1. Findings suspicious for COVID pneumonia. Please correlate. Diagnostic code #3
--- NOTE | 2021-02-09 12:08 | CT ---
Chest CT Technique: Multiple axial sections were obtained from above the lung apices inferiorly through the lung bases. Intravenous contrast was utilized. Study has been performed as a pulmonary angiogram protocol. Comparison: No prior chest CT is available, prior chest x-ray performed earlier on the same date (9:49 AM). Findings: No filling defects are seen within the pulmonary arteries to indicate pulmonary embolism. Thoracic aorta shows no aneurysm. Slightly prominent lymph nodes are seen within the mediastinum which are likely due to the patient's parenchymal process. No axillary adenopathy seen. No pericardial thickening is seen. Visualized upper abdominal structures shows several calcifications within the kidneys compatible with nonobstructing calculi. Lung window settings were reviewed which show diffuse increased density throughout both sides of the chest. Bone window settings were reviewed which show scattered degenerative change throughout the spine. No acute osseous finding is appreciated. Impression: 1. Findings compatible with diffuse COVID pneumonia. 2. No findings of pulmonary embolism. 3. Other findings believed to be chronic as noted above. Diagnostic code #3
[2021-02-09] MEDS ORDERED: REMDESIVIR 200 MG in Sodium Chloride 0.9% 250 ML IV ONE ×2 (13:06→13:30)
[2021-02-09] MEDS ORDERED: Dexamethasone 4 MG/ML SDV IVPUSH ONE (13:06)
--- NOTE | 2021-02-09 16:06 | EDM.PDOC ---
ED HPI GENERAL MEDICAL PROBLEM - General Chief Complaint: Respiratory Problem Stated Complaint: COVID +/LOW O2 Time Seen by Provider: 02/09/21 09:45 Source of Information: Reports: Patient History Limitations: Reports: No Limitations - History of Present Illness INITIAL COMMENTS - FREE TEXT/NARRATIVE: The patient presents with COVID 19. He has been dealing with this for about 2 weeks. The last couple of days he got worse. He has cough, shortness of breath, generalized weakness, nausea, and decreased appetite. He has no lung problems like asthma or COPD. He quit smoking many years ago. He has no history of heart disease, hypertension or hypercholesterolemia. He has no diarrhea or vomiting. His oxygen saturations were 70% on room air. Onset: Gradual Duration: Week(s): (2) Severity: Moderate Improves with: Reports: None Worsens with: Reports: None Associated Symptoms: Reports: Cough, Nausea/Vomiting, Shortness of Breath. Denies: Chest Pain, Fever/Chills, Headaches Right Lower Leg Pain Score (Numeric/FACES): 6 - Related Data Allergies Allergy/AdvReac Type Severity Reaction Status Date / Time No Known Allergies Allergy Verified 02/09/21 09:50 Home Meds: Home Meds . [No Known Home Meds] 02/09/21 [History] Past Medical History - Past Health History Medical/Surgical History: Denies Medical/Surgical History HEENT History: Reports: Impaired Vision Other HEENT History: reading glasses Cardiovascular History: Reports: None Respiratory History: Reports: Sleep Apnea Other Respiratory History: undiagnosed sleep apnea Gastrointestinal History: Reports: Colon Polyp Genitourinary History: Reports: None CONTOUR GRINDER History: Reports: None Musculoskeletal History: Reports: Gout, Other (See Below) Other Musculoskeletal History: left hip degenerative joint disease Neurological History: Reports: None Psychiatric History: Reports: Addiction Other Psychiatric History: hx of alcohol addiction Endocrine/Metabolic History: Reports: None Hematologic History: Reports: None Immunologic History: Reports: None Oncologic (Cancer) History: Reports: None Dermatologic History: Reports: None - Infectious Disease History Infectious Disease History: Reports: Chicken Pox, Hepatitis B, Novel Coronavirus - Past Surgical History Head Surgeries/Procedures: Reports: None HEENT Surgical History: Reports: None Cardiovascular Surgical History: Reports: None Respiratory Surgical History: Reports: None GI Surgical History: Reports: Colonoscopy, Other (See Below) Other GI Surgeries/Procedures: hernirrhaphy as Male Surgical History: Reports: None Endocrine Surgical History: Reports: None Neurological Surgical History: Reports: None Musculoskeletal Surgical History: Reports: Joint Replacement Oncologic Surgical History: Reports: None Dermatological Surgical History: Reports: None Social & Family History - Family History Family Medical History: No Pertinent Family History - Tobacco Use Tobacco Use Status *Q: Never Tobacco User - Caffeine Use Caffeine Use: Reports: None - Recreational Drug Use Recreational Drug Use: No ED ROS GENERAL - Review of Systems Review Of Systems: See Below Constitutional: Reports: Malaise, Weakness, Fatigue. Denies: Fever, Chills HEENT: Reports: No Symptoms Respiratory: Reports: Shortness of Breath, Cough Cardiovascular: Reports: No Symptoms Endocrine: Reports: No Symptoms GI/Abdominal: Reports: Nausea. Denies: Abdominal Pain, Vomiting : Reports: No Symptoms Musculoskeletal: Reports: No Symptoms ED EXAM, GENERAL - Physical Exam Exam: See Below Exam Limited By: No Limitations General Appearance: Alert, No Apparent Distress Ears: Normal External Exam Nose: Normal Inspection Head: Atraumatic, Normocephalic Neck: Normal Inspection Respiratory/Chest: No Respiratory Distress, Decreased Breath Sounds, Rhonchi Cardiovascular: Regular Rate, Rhythm, No Edema, No Murmur GI/Abdominal: Soft, Non-Tender, No Organomegaly, No Mass Back Exam: Normal Inspection Extremities: Normal Inspection #1 Interpretation EKG Date: 02/09/21 Time: 09:58 Rhythm: Other (sinus tachycardia) Rate (Beats/Min): 108 [place]: Normal P-Wave: Present QRS: Normal ST-T: Normal QT: Normal Course - Vital Signs Last Recorded V/S: Last Vital Signs Temp 98.2 F 02/09/21 09:44 Pulse 115 H 02/09/21 15:00 Resp 18 02/09/21 15:00 BP 163/104 H 02/09/21 15:00 Pulse Ox 93 L 02/09/21 15:00 - Orders/Labs/Meds Orders: Active Orders 24 hr Category Date Time Status Cardiac Monitoring [RC] . DIRECTED Care 02/09/21 10:01 Active Oxygen Therapy [RC] PRN Care 02/09/21 10:01 Active RT Aerosol Therapy [RC] ASDIRECTED Care 02/09/21 10:02 Active Sodium Chloride 0.9% [Normal Saline] 1,000 ml Med 02/09/21 10:15 Active IV .BOLUS Sodium Chloride 0.9% [Normal Saline] 100 ml Med 02/09/21 11:30 Active IV ASDIRECTED Sodium Chloride 0.9% [Saline Flush] Med 02/09/21 10:01 Active 10 ml FLUSH ASDIRECTED PRN Sodium Chloride 0.9% [Saline Flush] Med 02/09/21 11:23 Active 10 ml FLUSH ONETIME PRN Peripheral IV Insertion Adult [OM.PC] Stat Oth 02/09/21 10:01 Ordered Medication Orders Sodium Chloride (Normal Saline) 1,000 mls @ 1,000 mls/hr IV .BOLUS KT Last Admin: 02/09/21 10:28 Dose: 1,000 mls/hr Documented by: CANDI Sodium Chloride (Normal Saline) 100 mls @ 75 mls/hr IV ASDIRECTED KT Last Admin: 02/09/21 11:47 Dose: 75 mls/hr Documented by: JELENA Sodium Chloride (Sodium Chloride 0.9% 10 Ml Syringe) 10 ml FLUSH ASDIRECTED PRN PRN Reason: Keep Vein Open Last Admin: 02/09/21 10:28 Dose: 10 ml Documented by: CANDI Sodium Chloride (Sodium Chloride 0.9% 10 Ml Syringe) 10 ml FLUSH ONETIME PRN PRN Reason: IV FLUSH Last Admin: 02/09/21 11:47 Dose: 10 ml Documented by: JELENA Labs: Laboratory Tests 02/09/21 02/09/21 02/09/21 Range/Units 09:55 09:55 09:55 WBC 8.76 (4.23-9.07) K/mm3 RBC 4.43 L (4.63-6.08) M/mm3 Hgb 13.6 L (13.7-17.5) gm/dl Hct 40.7 (40.1-51.0) % MCV 91.9 (79.0-92.2) fl MCH 30.7 (25.7-32.2) pg MCHC 33.4 (32.2-35.5) g/dl RDW Std Deviation 42.1 (35.1-43.9) fL Plt Count 254 (163-337) K/mm3 MPV 9.8 (9.4-12.3) fl Neut % (Auto) 84.4 H (34.0-67.9) % Lymph % (Auto) 6.2 L (21.8-53.1) % [place] % (Auto) 6.7 (5.3-12.2) % Eos % (Auto) 0.2 L (0.8-7.0) Baso % (Auto) 0.2 (0.1-1.2) % Neut # (Auto) 7.39 H (1.78-5.38) K/mm3 Lymph # (Auto) 0.54 L (1.32-3.57) K/mm3 [place] # (Auto) 0.59 (0.30-0.82) K/mm3 Eos # (Auto) 0.02 L (0.04-0.54) K/mm3 Baso # (Auto) 0.02 (0.01-0.08) K/mm3 PT 10.9 (9.7-12.0) SECONDS INR 0.98 APTT 27.6 (21.7-31.4) SECONDS D-Dimer, Quantitative > 35.20 H (0.19-0.50) mg/L Sodium 139 (136-145) mEq/L Potassium 3.8 (3.5-5.1) mEq/L Chloride 103 (98-107) mEq/L Carbon Dioxide 26 (21-32) mEq/L Anion Gap 13.8 (5-15) BUN 12 (7-18) mg/dL Creatinine 1.0 (0.7-1.3) mg/dL Est Cr Clr Drug Dosing 72.53 mL/min Estimated GFR (MDRD) > 60 (>60) mL/min BUN/Creatinine Ratio 12.0 L (14-18) Glucose 128 H (70-99) mg/dL Lactic Acid (0.4-2.0) mmol/L Calcium 9.2 (8.5-10.1) mg/dL Total Bilirubin 1.0 (0.2-1.0) mg/dL AST 43 H (15-37) U/L ALT 66 H (16-63) U/L Alkaline Phosphatase 50 (46-116) U/L Troponin I 0.203 H* (0.00-0.056) ng/mL C-Reactive Protein 19.8 H* (<1.0) mg/dL NT-Pro-B Natriuret Pep (0-125) pg/mL Total Protein 7.4 (6.4-8.2) g/dl Albumin 2.9 L (3.4-5.0) g/dl Globulin 4.5 gm/dL Albumin/Globulin Ratio 0.6 L (1-2) 02/09/21 02/09/21 Range/Units 09:55 10:30 WBC (4.23-9.07) K/mm3 RBC (4.63-6.08) M/mm3 Hgb (13.7-17.5) gm/dl Hct (40.1-51.0) % MCV (79.0-92.2) fl MCH (25.7-32.2) pg MCHC (32.2-35.5) g/dl RDW Std Deviation (35.1-43.9) fL Plt Count (163-337) K/mm3 MPV (9.4-12.3) fl Neut % (Auto) (34.0-67.9) % Lymph % (Auto) (21.8-53.1) % [place] % (Auto) (5.3-12.2) % Eos % (Auto) (0.8-7.0) Baso % (Auto) (0.1-1.2) % Neut # (Auto) (1.78-5.38) K/mm3 Lymph # (Auto) (1.32-3.57) K/mm3 [place] # (Auto) (0.30-0.82) K/mm3 Eos # (Auto) (0.04-0.54) K/mm3 Baso # (Auto) (0.01-0.08) K/mm3 PT (9.7-12.0) SECONDS INR APTT (21.7-31.4) SECONDS D-Dimer, Quantitative (0.19-0.50) mg/L Sodium (136-145) mEq/L Potassium (3.5-5.1) mEq/L Chloride (98-107) mEq/L Carbon Dioxide (21-32) mEq/L Anion Gap (5-15) BUN (7-18) mg/dL Creatinine (0.7-1.3) mg/dL Est Cr Clr Drug Dosing mL/min Estimated GFR (MDRD) (>60) mL/min BUN/Creatinine Ratio (14-18) Glucose (70-99) mg/dL Lactic Acid 1.3 (0.4-2.0) mmol/L Calcium (8.5-10.1) mg/dL Total Bilirubin (0.2-1.0) mg/dL AST (15-37) U/L ALT (16-63) U/L Alkaline Phosphatase (46-116) U/L Troponin I (0.00-0.056) ng/mL C-Reactive Protein (<1.0) mg/dL NT-Pro-B Natriuret Pep 244 H (0-125) pg/mL Total Protein (6.4-8.2) g/dl Albumin (3.4-5.0) g/dl Globulin gm/dL Albumin/Globulin Ratio (1-2) Meds: Medications Generic Name Dose Route Start Last Admin Trade Name Freq PRN Reason Stop Dose Admin Sodium Chloride 1,000 mls @ 1,000 mls/hr 02/09/21 10:15 02/09/21 10:28 Normal Saline IV 1,000 mls/hr .BOLUS KT Administration Sodium Chloride 100 mls @ 75 mls/hr 02/09/21 11:30 02/09/21 11:47 Normal Saline IV 75 mls/hr ASDIRECTED KT Administration Sodium Chloride 10 ml 02/09/21 10:01 02/09/21 10:28 Sodium Chloride 0.9% 10 Ml Syringe FLUSH 10 ml ASDIRECTED PRN Administration Keep Vein Open Sodium Chloride 10 ml 02/09/21 11:23 02/09/21 11:47 Sodium Chloride 0.9% 10 Ml Syringe FLUSH 10 ml ONETIME PRN Administration IV FLUSH Discontinued Medications Generic Name Dose Route Start Last Admin Trade Name Freq PRN Reason Stop Dose Admin Albuterol/Ipratropium 3 ml 02/09/21 10:02 02/09/21 10:16 Albuterol/Ipratropium 3.0-0.5 Mg/3 Ml Neb Soln NEB 02/09/21 10:03 3 ml ONETIME ONE Administration Dexamethasone 6 mg 02/09/21 13:06 02/09/21 13:53 Dexamethasone 4 Mg/Ml Sdv IVPUSH 02/09/21 13:07 6 mg ONETIME ONE Administration Remdesivir 200 mg/ Sodium 250 mls @ 250 mls/hr 02/09/21 13:06 02/09/21 13:54 Chloride IV 02/09/21 13:07 Not Given ONETIME ONE Remdesivir 200 mg/ Sodium 250 mls @ 250 mls/hr 02/09/21 13:30 02/09/21 13:53 Chloride IV 02/09/21 14:29 250 mls/hr ONETIME ONE Administration Iopamidol 100 ml 02/09/21 11:23 02/09/21 11:47 Iopamidol 755 Mg/Ml 100 Ml Bottle IVPUSH 02/09/21 11:24 100 ml ONETIME ONE Administration - Re-Assessments/Exams Free Text/Narrative Re-Assessment/Exam: 02/09/21 16:07 I ordered oxygen, IV NS 1L bolus, duoneb, dexamethasone 6mg IV, labs, EKG, CXR, and labs. His EKG shows a sinus tachycardia with no acute changes. His CBC looks good. His D-dimer was >35. His glucose is 128. His AST is elevated at 43. His ALT is elevated at 66. His troponin is elevated at 0.203. His CRP is elevated at 19.8. His BNP is elevated at 244. His CXR shows findings suspicious for COVID pneumonia. It required more and more oxygen to get him above 90%. He is on a nonrebreather now. A high flow nasal cannula was available so we switched him to that. I ordered a CT angio of his chest and it shows findings compatible with diffuse COVID pneumonia. No findings of pulmonary embolism. Other findings believed to be chronic. I have ordered remdesivir. I feel he needs to be admitted. I called Dr David and he agreed to the admission. He did want me to do an US of his right leg. He had some calf pain earlier. Departure - Departure Time of Disposition: 16:20 Disposition: Admitted As Inpatient 65 Condition: Serious Clinical Impression: COVID-19, Pneumonia due to COVID-19 virus, Hypoxia - Discharge Information Sepsis Event Note (ED) - Evaluation Sepsis Screening Result: No Definite Risk - Focused Exam Vital Signs: Vital Signs Temp Pulse Resp BP Pulse Ox Pulse Ox Pulse Ox 02/09/21 15:00 115 H 18 163/104 H 93 L 02/09/21 14:52 91 L 02/09/21 10:02 88 L 10/22/21 09:44 98.2 F 112 H 20 173/97 H 70 L - My Orders Last 24 Hours: My Active Orders 02/09/21 10:01 Cardiac Monitoring [RC] . DIRECTED Oxygen Therapy [RC] PRN Sodium Chloride 0.9% [Saline Flush] 10 ml FLUSH ASDIRECTED PRN Peripheral IV Insertion Adult [OM.PC] Stat 02/09/21 10:02 RT Aerosol Therapy [RC] ASDIRECTED 02/09/21 10:15 Sodium Chloride 0.9% [Normal Saline] 1,000 ml IV .BOLUS 02/09/21 11:23 Sodium Chloride 0.9% [Saline Flush] 10 ml FLUSH ONETIME PRN 02/09/21 11:30 Sodium Chloride 0.9% [Normal Saline] 100 ml IV ASDIRECTED - Assessment/Plan Last 24 Hours: My Active Orders 02/09/21 10:01 Cardiac Monitoring [RC] . DIRECTED Oxygen Therapy [RC] PRN Sodium Chloride 0.9% [Saline Flush] 10 ml FLUSH ASDIRECTED PRN Peripheral IV Insertion Adult [OM.PC] Stat 02/09/21 10:02 RT Aerosol Therapy [RC] ASDIRECTED 02/09/21 10:15 Sodium Chloride 0.9% [Normal Saline] 1,000 ml IV .BOLUS 02/09/21 11:23 Sodium Chloride 0.9% [Saline Flush] 10 ml FLUSH ONETIME PRN 02/09/21 11:30 Sodium Chloride 0.9% [Normal Saline] 100 ml IV ASDIRECTED
--- NOTE | 2021-02-09 16:32 | US ---
Right lower extremity deep venous ultrasound: Duplex and color Doppler evaluation was obtained of the right common femoral, proximal greater saphenous, superficial femoral, popliteal, posterior tibial and peroneal veins. Left common femoral vein was also evaluated. Comparison: No prior lower extremity venous imaging is available. Findings: Thrombus is seen within the popliteal, posterior tibial and peroneal veins on the right side. Other veins show normal phasic flow, augmentation and compression. Impression: 1. Venous thrombosis within the right popliteal, posterior tibial and peroneal veins. Diagnostic code #5
--- NOTE | 2021-02-09 16:44 | PCM.HP.2 ---
H&P History of Present Illness - General Date of Service: 02/09/21 Admit Problem/Dx: Admission Diagnosis/Problem Admission Diagnosis/Problem Pneumonia - History of Present Illness Initial Comments - Free Text/Narative: 60-year-old male with COVID-19, first symptomatic on January 28, 2021, presents to the emergency department with worsening shortness of breath, cough, generalized weakness, night sweats and chills. Patient states that on the he woke up not feeling well. By the he went back to work and then slowly started getting worse again. He was doing better until a couple of days ago when he started having chills, fatigue, and worsening shortness of breath. He also started developing right lower leg swelling a couple of days ago. When he presented to the emergency department his oxygen saturations were 70% on room air. He had multiple known COVID-19 contacts. He denies any smoking, asthma, COPD, hypertension, diabetes, or other chronic medical conditions. Right Lower Leg Pain Score (Numeric/FACES): 6 - Related Data Allergies/Adverse Reactions: Allergies Allergy/AdvReac Type Severity Reaction Status Date / Time No Known Allergies Allergy Verified 02/09/21 09:50 Home Medications: Home Meds . 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 Musculoskeletal History: Reports: Gout, Other (See Below) Other Musculoskeletal History: left hip degenerative joint disease Neurological History: Reports: None Psychiatric History: Reports: Addiction Other Psychiatric History: hx of alcohol addiction Endocrine/Metabolic History: Reports: None Hematologic History: Reports: None Immunologic History: Reports: None Oncologic (Cancer) History: Reports: None Dermatologic History: Reports: None - Infectious Disease History Infectious Disease History: Reports: Chicken Pox, Hepatitis B, Novel Coronavirus - Past Surgical History Head Surgeries/Procedures: Reports: None HEENT Surgical History: Reports: None Cardiovascular Surgical History: Reports: None Respiratory Surgical History: Reports: None GI Surgical History: Reports: Colonoscopy, Other (See Below) Other GI Surgeries/Procedures: hernirrhaphy as Male Surgical History: Reports: None Endocrine Surgical History: Reports: None Neurological Surgical History: Reports: None Musculoskeletal Surgical History: Reports: Joint Replacement Oncologic Surgical History: Reports: None Dermatological Surgical History: Reports: None Social & Family History - Family History Family Medical History: No Pertinent Family History - Tobacco Use Tobacco Use Status *Q: Never Tobacco User - Caffeine Use Caffeine Use: Reports: None - Recreational Drug Use Recreational Drug Use: No H&P Review of Systems - Review of Systems: Review Of Systems: Comprehensive ROS is negative, except as noted in HPI. Exam - Exam Exam: See Below - Vital Signs Vital Signs: Last Vital Signs Temp 98.2 F 02/09/21 09:44 Pulse 115 H 02/09/21 16:15 Resp 18 02/09/21 16:15 BP 164/78 H 02/09/21 16:15 Pulse Ox 94 L 02/09/21 16:15 Weight: 222 lb - Exam Quality Assessment: Supplemental Oxygen (High flow nasal cannula) General: Alert, Oriented, 4 HEENT: Conjunctiva Clear, EOMI, Hearing Intact, Mucosa Moist & [place] Neck: Supple, Trachea Midline, 2 Lungs: Crackles (Bibasilar). No: Normal Respiratory Effort (Mildly increased respiratory rate) Cardiovascular: Regular Rhythm, Tachycardia (Sinus tachycardia) GI/Abdominal Exam: Normal Bowel Sounds, Soft, Non-Tender, No Organomegaly, No Distention, No Abnormal Bruit, No Mass Extremities: Non-Tender, No Pedal Edema (Normal left lower extremity), Normal Capillary Refill, Pedal Edema (Right lower extremity 1+) Skin: Warm, Dry, Intact Neuro Extensive - Mental Status: Alert, Oriented x3, Normal Mood/Affect, Normal Cognition, Memory Intact Neuro Extensive - Motor, Sensory, Reflexes: CN II-XII Intact Psychiatric: Alert, Normal Affect, Normal Mood - Patient Data Lab Results Last 24 hrs: Laboratory Results - last 24 hr 02/09/21 02/09/21 02/09/21 Range/Units 09:55 09:55 09:55 WBC 8.76 (4.23-9.07) K/mm3 RBC 4.43 L (4.63-6.08) M/mm3 Hgb 13.6 L (13.7-17.5) gm/dl Hct 40.7 (40.1-51.0) % MCV 91.9 (79.0-92.2) fl MCH 30.7 (25.7-32.2) pg MCHC 33.4 (32.2-35.5) g/dl RDW Std Deviation 42.1 (35.1-43.9) fL Plt Count 254 (163-337) K/mm3 MPV 9.8 (9.4-12.3) fl Neut % (Auto) 84.4 H (34.0-67.9) % Lymph % (Auto) 6.2 L (21.8-53.1) % [place] % (Auto) 6.7 (5.3-12.2) % Eos % (Auto) 0.2 L (0.8-7.0) Baso % (Auto) 0.2 (0.1-1.2) % Neut # (Auto) 7.39 H (1.78-5.38) K/mm3 Lymph # (Auto) 0.54 L (1.32-3.57) K/mm3 [place] # (Auto) 0.59 (0.30-0.82) K/mm3 Eos # (Auto) 0.02 L (0.04-0.54) K/mm3 Baso # (Auto) 0.02 (0.01-0.08) K/mm3 PT 10.9 (9.7-12.0) SECONDS INR 0.98 APTT 27.6 (21.7-31.4) SECONDS D-Dimer, Quantitative > 35.20 H (0.19-0.50) mg/L Sodium 139 (136-145) mEq/L Potassium 3.8 (3.5-5.1) mEq/L Chloride 103 (98-107) mEq/L Carbon Dioxide 26 (21-32) mEq/L Anion Gap 13.8 (5-15) BUN 12 (7-18) mg/dL Creatinine 1.0 (0.7-1.3) mg/dL Est Cr Clr Drug Dosing 72.53 mL/min Estimated GFR (MDRD) > 60 (>60) mL/min BUN/Creatinine Ratio 12.0 L (14-18) Glucose 128 H (70-99) mg/dL Lactic Acid (0.4-2.0) mmol/L Calcium 9.2 (8.5-10.1) mg/dL Total Bilirubin 1.0 (0.2-1.0) mg/dL AST 43 H (15-37) U/L ALT 66 H (16-63) U/L Alkaline Phosphatase 50 (46-116) U/L Troponin I 0.203 H* (0.00-0.056) ng/mL C-Reactive Protein 19.8 H* (<1.0) mg/dL NT-Pro-B Natriuret Pep (0-125) pg/mL Total Protein 7.4 (6.4-8.2) g/dl Albumin 2.9 L (3.4-5.0) g/dl Globulin 4.5 gm/dL Albumin/Globulin Ratio 0.6 L (1-2) 02/09/21 02/09/21 Range/Units 09:55 10:30 WBC (4.23-9.07) K/mm3 RBC (4.63-6.08) M/mm3 Hgb (13.7-17.5) gm/dl Hct (40.1-51.0) % MCV (79.0-92.2) fl MCH (25.7-32.2) pg MCHC (32.2-35.5) g/dl RDW Std Deviation (35.1-43.9) fL Plt Count (163-337) K/mm3 MPV (9.4-12.3) fl Neut % (Auto) (34.0-67.9) % Lymph % (Auto) (21.8-53.1) % [place] % (Auto) (5.3-12.2) % Eos % (Auto) (0.8-7.0) Baso % (Auto) (0.1-1.2) % Neut # (Auto) (1.78-5.38) K/mm3 Lymph # (Auto) (1.32-3.57) K/mm3 [place] # (Auto) (0.30-0.82) K/mm3 Eos # (Auto) (0.04-0.54) K/mm3 Baso # (Auto) (0.01-0.08) K/mm3 PT (9.7-12.0) SECONDS INR APTT (21.7-31.4) SECONDS D-Dimer, Quantitative (0.19-0.50) mg/L Sodium (136-145) mEq/L Potassium (3.5-5.1) mEq/L Chloride (98-107) mEq/L Carbon Dioxide (21-32) mEq/L Anion Gap (5-15) BUN (7-18) mg/dL Creatinine (0.7-1.3) mg/dL Est Cr Clr Drug Dosing mL/min Estimated GFR (MDRD) (>60) mL/min BUN/Creatinine Ratio (14-18) Glucose (70-99) mg/dL Lactic Acid 1.3 (0.4-2.0) mmol/L Calcium (8.5-10.1) mg/dL Total Bilirubin (0.2-1.0) mg/dL AST (15-37) U/L ALT (16-63) U/L Alkaline Phosphatase (46-116) U/L Troponin I (0.00-0.056) ng/mL C-Reactive Protein (<1.0) mg/dL NT-Pro-B Natriuret Pep 244 H (0-125) pg/mL Total Protein (6.4-8.2) g/dl Albumin (3.4-5.0) g/dl Globulin gm/dL Albumin/Globulin Ratio (1-2) Result Diagrams: 02/09/21 09:55 02/09/21 09:55 Sepsis Event Note - Evaluation Sepsis Screening Result: No Definite Risk - Focused Exam Vital Signs: Vital Signs Temp Pulse Resp BP Pulse Ox Pulse Ox Pulse Ox 02/09/21 16:15 115 H 18 164/78 H 94 L 02/09/21 15:00 115 H 18 163/104 H 93 L 02/09/21 14:52 91 L 02/09/21 10:02 88 L 02/09/21 09:44 98.2 F 112 H 20 173/97 H 70 L - Problem List (1) Elevated blood pressure reading without diagnosis of hypertension SNOMED Code(s): 432849396 ICD Code: R03.0 - ELEVATED BLOOD-PRESSURE READING, W/O DIAGNOSIS OF HTN Status: Acute Current Visit: Yes (2) Right leg DVT SNOMED Code(s): 230823665 ICD Code: I82.401 - ACUTE EMBOLISM AND THOMBOS UNSP DEEP VEINS OF R LOW EXTREM Status: Acute Current Visit: Yes (3) Elevated troponin level not due to acute coronary syndrome SNOMED Code(s): 445115874, 785302913, 048506941 ICD Code: R77.8 - OTHER SPECIFIED ABNORMALITIES OF PLASMA PROTEINS Status: Acute Current Visit: Yes (4) Pneumonia due to COVID-19 virus SNOMED Code(s): 254307393680865838 ICD Code: U07.1 - COVID-19; J12.82 - PNEUMONIA DUE TO CORONAVIRUS DISEASE 2019 Status: Acute Current Visit: Yes Problem List Initiated/Reviewed/Updated: Yes Orders Last 24hrs: Active Orders 24 hr Category Date Time Status Admission Status [Patient Status] [ADT] Routine ADT 02/09/21 15:39 Active Cardiac Monitoring [RC] . DIRECTED Care 02/09/21 10:01 Active Oxygen Therapy [RC] PRN Care 02/09/21 10:01 Active RT Aerosol Therapy [RC] ASDIRECTED Care 02/09/21 10:02 Active Sodium Chloride 0.9% [Normal Saline] 1,000 ml Med 02/09/21 10:15 Active IV .BOLUS Sodium Chloride 0.9% [Normal Saline] 100 ml Med 02/09/21 11:30 Active IV ASDIRECTED Sodium Chloride 0.9% [Saline Flush] Med 02/09/21 10:01 Active 10 ml FLUSH ASDIRECTED PRN Sodium Chloride 0.9% [Saline Flush] Med 02/09/21 11:23 Active 10 ml FLUSH ONETIME PRN Peripheral IV Insertion Adult [OM.PC] Stat Oth 02/09/21 10:01 Ordered Medication Orders Sodium Chloride (Normal Saline) 1,000 mls @ 1,000 mls/hr IV .BOLUS KT Last Admin: 02/09/21 10:28 Dose: 1,000 mls/hr Documented by: CANDI Sodium Chloride (Normal Saline) 100 mls @ 75 mls/hr IV ASDIRECTED KT Last Admin: 02/09/21 11:47 Dose: 75 mls/hr Documented by: JELENA Sodium Chloride (Sodium Chloride 0.9% 10 Ml Syringe) 10 ml FLUSH ASDIRECTED PRN PRN Reason: Keep Vein Open Last Admin: 02/09/21 10:28 Dose: 10 ml Documented by: CANDI Sodium Chloride (Sodium Chloride 0.9% 10 Ml Syringe) 10 ml FLUSH ONETIME PRN PRN Reason: IV FLUSH Last Admin: 02/09/21 11:47 Dose: 10 ml Documented by: JELENA Assessment/Plan Comment:: 60-year-old male with COVID-19 for symptomatic on January 28, 2021 COVID-19 pneumonia Respiratory failure * Symptomatic for 12 days * Given 1 L IV bolus, DuoNeb, dexamethasone, remdesivir in the emergency department * CTA of the chest was negative for pulmonary embolism but compatible with diffuse Covid pneumonia. * WBC of 8.76, D-dimer greater than 35, CRP 19.8, troponin 0 0.203, proBNP 244, albumin 2.9 * On high flow nasal cannula Elevated troponin consistent with type II MD Elevated blood pressure without diagnosis of hypertension * Likely secondary to increased work from tachycardia, hypoxemia, and Covid * EKG showed no acute ST-T wave changes. * No indication for cardiac catheterization. * Treat underlying cause of hypoxemia. * Repeating troponin is not beneficial. DVT within the right popliteal, posterior tibial, and peroneal veins * D-dimer was greater than 35 without a PE * Leg started swelling 2 days ago * Minimal pain. Plan * Admit to medical floor * FiO2 to keep SPO2 between 88 and 94%. Currently on high flow nasal cannula. * Metoprolol 5 mg IV every 4 hours as needed hypertension or tachycardia * Eliquis 10 mg twice daily for 7 days then 5 mg twice daily * Continue dexamethasone, remdesivir * As needed duo nebs and albuterol * Routine COVID-19 treatment protocol to include I-S, RT, prone positioning, and other * Consider baricitinib. Patient was given handout on EUA on baricitinib. Patient agreed to treatment with baricitinib. * Follow CBC, CMP, mag, Phos, CRP. No benefit from following D-dimer. * Hydralazine 10 mg IV for hypertension * CODE STATUS: Full code I spoke with patient to provide information about baricitinib. I offered the "fax sheet for patients and parents/caregivers, for baricitinib" to read and review. I stated that therapy has been approved by an emergency use authorization process and has not fully been FDA reviewed or approved. I shared potential risks from the therapy including increased risk for serious infections, anaphylaxis, and reaction to medication. I discussed there are other potential treatment options that are currently not FDA approved to treat COVID-19. Offered opportunity to ask questions and all questions were answered. Patient voiced understanding and agreed to proceed with treatment. - Mortality Measure Prognosis:: Good
[2021-02-09] MEDS ORDERED: Acetaminophen 325 MG Tab PO PRN (16:54)
[2021-02-09] MEDS ORDERED: Ondansetron 4 MG/2 ML SDV IV PRN (16:54)
[2021-02-09] MEDS: Apixaban 5 MG Tab PO SCH ×2 (17:31→20:40)
[2021-02-09] MEDS ORDERED: Metoprolol Tartrate 5 MG/5 ML SDV IVPUSH PRN ×2 (18:33→19:32)
[2021-02-09] MEDS ORDERED: hydrALAZINE 20 MG/ML SDV IVPUSH PRN (18:38)
[2021-02-09] MEDS: Metoprolol Tartrate 25 MG Tab PO SCH (20:41)
--- NOTE | 2021-02-10 07:31 | PCM.PN ---
- General Info Date of Service: 02/10/21 Admission Dx/Problem (Free Text): Admission Diagnosis/Problem Admission Diagnosis/Problem Pneumonia Subjective Update: The patient is a 60-year-old gentleman who was admitted yesterday secondary to COVID-19 associated with pneumonia and acute respiratory failure. The patient today says that he feels better. The patient has been tolerating his diet. The patient has no other complaints today. Functional Status: Reports: Pain Controlled, Tolerating Diet. Denies: New Symptoms - Review of Systems General: Reports: Weakness HEENT: Reports: No Symptoms Pulmonary: Reports: Shortness of Breath, Cough Cardiovascular: Reports: No Symptoms Gastrointestinal: Reports: No Symptoms Genitourinary: Reports: No Symptoms Musculoskeletal: Reports: No Symptoms Skin: Reports: No Symptoms Neurological: Reports: No Symptoms Psychiatric: Reports: No Symptoms - Patient Data Vitals - Most Recent: Last Vital Signs Temp 36.3 C 02/10/21 04:00 Pulse 61 02/10/21 06:00 Resp 20 02/10/21 04:00 BP 154/94 H 02/10/21 04:00 Pulse Ox 94 L 02/10/21 06:00 Weight - Most Recent: 98.248 kg I&O - Last 24 Hours: Intake & Output 02/09/21 02/10/21 02/10/21 22:59 06:59 14:59 Output Total 100 Balance -100 Lab Results Last 24 Hours: Laboratory Results - last 24 hr 02/09/21 02/09/21 02/09/21 Range/Units 09:55 09:55 09:55 WBC 8.76 (4.23-9.07) K/mm3 RBC 4.43 L (4.63-6.08) M/mm3 Hgb 13.6 L (13.7-17.5) gm/dl Hct 40.7 (40.1-51.0) % MCV 91.9 (79.0-92.2) fl MCH 30.7 (25.7-32.2) pg MCHC 33.4 (32.2-35.5) g/dl RDW Std Deviation 42.1 (35.1-43.9) fL Plt Count 254 (163-337) K/mm3 MPV 9.8 (9.4-12.3) fl Neut % (Auto) 84.4 H (34.0-67.9) % Lymph % (Auto) 6.2 L (21.8-53.1) % Andrew % (Auto) 6.7 (5.3-12.2) % Eos % (Auto) 0.2 L (0.8-7.0) Baso % (Auto) 0.2 (0.1-1.2) % Neut # (Auto) 7.39 H (1.78-5.38) K/mm3 Lymph # (Auto) 0.54 L (1.32-3.57) K/mm3 Andrew # (Auto) 0.59 (0.30-0.82) K/mm3 Eos # (Auto) 0.02 L (0.04-0.54) K/mm3 Baso # (Auto) 0.02 (0.01-0.08) K/mm3 Manual Slide Review PT 10.9 (9.7-12.0) SECONDS INR 0.98 APTT 27.6 (21.7-31.4) SECONDS D-Dimer, Quantitative > 35.20 H (0.19-0.50) mg/L Sodium 139 (136-145) mEq/L Potassium 3.8 (3.5-5.1) mEq/L Chloride 103 (98-107) mEq/L Carbon Dioxide 26 (21-32) mEq/L Anion Gap 13.8 (5-15) BUN 12 (7-18) mg/dL Creatinine 1.0 (0.7-1.3) mg/dL Est Cr Clr Drug Dosing 72.53 mL/min Estimated GFR (MDRD) > 60 (>60) mL/min BUN/Creatinine Ratio 12.0 L (14-18) Glucose 128 H (70-99) mg/dL Lactic Acid (0.4-2.0) mmol/L Calcium 9.2 (8.5-10.1) mg/dL Phosphorus (2.6-4.7) mg/dL Magnesium (1.8-2.4) mg/dL Total Bilirubin 1.0 (0.2-1.0) mg/dL AST 43 H (15-37) U/L ALT 66 H (16-63) U/L Alkaline Phosphatase 50 (46-116) U/L Troponin I 0.203 H* (0.00-0.056) ng/mL C-Reactive Protein 19.8 H* (<1.0) mg/dL NT-Pro-B Natriuret Pep (0-125) pg/mL Total Protein 7.4 (6.4-8.2) g/dl Albumin 2.9 L (3.4-5.0) g/dl Globulin 4.5 gm/dL Albumin/Globulin Ratio 0.6 L (1-2) 02/09/21 02/09/21 02/10/21 Range/Units 09:55 10:30 04:30 WBC 7.52 (4.23-9.07) K/mm3 RBC 3.83 L (4.63-6.08) M/mm3 Hgb 11.9 L D (13.7-17.5) gm/dl Hct 35.3 L (40.1-51.0) % MCV 92.2 (79.0-92.2) fl MCH 31.1 (25.7-32.2) pg MCHC 33.7 (32.2-35.5) g/dl RDW Std Deviation 41.8 (35.1-43.9) fL Plt Count 211 (163-337) K/mm3 MPV 9.8 (9.4-12.3) fl Neut % (Auto) 76.7 H (34.0-67.9) % Lymph % (Auto) 13.8 L (21.8-53.1) % Andrew % (Auto) 8.5 (5.3-12.2) % Eos % (Auto) 0 L (0.8-7.0) Baso % (Auto) 0.1 (0.1-1.2) % Neut # (Auto) 5.76 H (1.78-5.38) K/mm3 Lymph # (Auto) 1.04 L (1.32-3.57) K/mm3 Andrew # (Auto) 0.64 (0.30-0.82) K/mm3 Eos # (Auto) 0.00 L (0.04-0.54) K/mm3 Baso # (Auto) 0.01 (0.01-0.08) K/mm3 Manual Slide Review Abnormal smear PT (9.7-12.0) SECONDS INR APTT (21.7-31.4) SECONDS D-Dimer, Quantitative (0.19-0.50) mg/L Sodium (136-145) mEq/L Potassium (3.5-5.1) mEq/L Chloride (98-107) mEq/L Carbon Dioxide (21-32) mEq/L Anion Gap (5-15) BUN (7-18) mg/dL Creatinine (0.7-1.3) mg/dL Est Cr Clr Drug Dosing mL/min Estimated GFR (MDRD) (>60) mL/min BUN/Creatinine Ratio (14-18) Glucose (70-99) mg/dL Lactic Acid 1.3 (0.4-2.0) mmol/L Calcium (8.5-10.1) mg/dL Phosphorus (2.6-4.7) mg/dL Magnesium (1.8-2.4) mg/dL Total Bilirubin (0.2-1.0) mg/dL AST (15-37) U/L ALT (16-63) U/L Alkaline Phosphatase (46-116) U/L Troponin I (0.00-0.056) ng/mL C-Reactive Protein (<1.0) mg/dL NT-Pro-B Natriuret Pep 244 H (0-125) pg/mL Total Protein (6.4-8.2) g/dl Albumin (3.4-5.0) g/dl Globulin gm/dL Albumin/Globulin Ratio (1-2) 02/10/21 Range/Units 04:30 WBC (4.23-9.07) K/mm3 RBC (4.63-6.08) M/mm3 Hgb (13.7-17.5) gm/dl Hct (40.1-51.0) % MCV (79.0-92.2) fl MCH (25.7-32.2) pg MCHC (32.2-35.5) g/dl RDW Std Deviation (35.1-43.9) fL Plt Count (163-337) K/mm3 MPV (9.4-12.3) fl Neut % (Auto) (34.0-67.9) % Lymph % (Auto) (21.8-53.1) % Andrew % (Auto) (5.3-12.2) % Eos % (Auto) (0.8-7.0) Baso % (Auto) (0.1-1.2) % Neut # (Auto) (1.78-5.38) K/mm3 Lymph # (Auto) (1.32-3.57) K/mm3 Andrew # (Auto) (0.30-0.82) K/mm3 Eos # (Auto) (0.04-0.54) K/mm3 Baso # (Auto) (0.01-0.08) K/mm3 Manual Slide Review PT (9.7-12.0) SECONDS INR APTT (21.7-31.4) SECONDS D-Dimer, Quantitative (0.19-0.50) mg/L Sodium 142 (136-145) mEq/L Potassium 4.2 (3.5-5.1) mEq/L Chloride 106 (98-107) mEq/L Carbon Dioxide 25 (21-32) mEq/L Anion Gap 15.2 H (5-15) BUN 15 (7-18) mg/dL Creatinine 0.9 (0.7-1.3) mg/dL Est Cr Clr Drug Dosing 80.58 mL/min Estimated GFR (MDRD) > 60 (>60) mL/min BUN/Creatinine Ratio 16.7 (14-18) Glucose 127 H (70-99) mg/dL Lactic Acid (0.4-2.0) mmol/L Calcium 8.4 L (8.5-10.1) mg/dL Phosphorus 3.1 (2.6-4.7) mg/dL Magnesium 1.9 (1.8-2.4) mg/dL Total Bilirubin 0.7 (0.2-1.0) mg/dL AST 34 (15-37) U/L ALT 50 (16-63) U/L Alkaline Phosphatase 42 L (46-116) U/L Troponin I (0.00-0.056) ng/mL C-Reactive Protein 17.9 H* (<1.0) mg/dL NT-Pro-B Natriuret Pep (0-125) pg/mL Total Protein 5.8 L (6.4-8.2) g/dl Albumin 2.5 L (3.4-5.0) g/dl Globulin 3.3 gm/dL Albumin/Globulin Ratio 0.8 L (1-2) Med Orders - Current: Current Medications Acetaminophen (Acetaminophen 325 Mg Tab) 650 mg PO Q4H PRN PRN Reason: Pain (Mild 1-3)/fever Apixaban (Apixaban 5 Mg Tab) 10 mg PO BID [facility] Last Admin: 02/09/21 20:40 Dose: 10 mg Documented by: Aspirin (Aspirin 81 Mg Tab.Ec) 81 mg PO DAILY [facility] Baricitinib (Baricitinib 2 Mg Tab) 4 mg PO BEDTIME [facility] Last Admin: 02/09/21 20:41 Dose: 4 mg Documented by: Dexamethasone (Dexamethasone 4 Mg Tab) 6 mg PO DAILY [facility] Stop: 02/19/21 09:01 Sodium Chloride (Normal Saline) 100 mls @ 75 mls/hr IV ASDIRECTED [facility] Last Admin: 02/09/21 11:47 Dose: 75 mls/hr Documented by: Remdesivir 100 mg/ Sodium (Chloride) 100 mls @ 100 mls/hr IV Q24H [facility] Stop: 02/13/21 17:59 Metoprolol Tartrate (Metoprolol Tartrate 5 Mg/5 Ml Sdv) 5 mg IVPUSH Q4H PRN PRN Reason: Hypertension Metoprolol Tartrate (Metoprolol Tartrate 25 Mg Tab) 25 mg PO Q12H [facility] Last Admin: 02/09/21 20:41 Dose: 25 mg Documented by: Ondansetron HCl (Ondansetron 4 Mg/2 Ml Sdv) 4 mg IV Q4H PRN PRN Reason: Nausea/Vomiting Sodium Chloride (Sodium Chloride 0.9% 10 Ml Syringe) 10 ml FLUSH ASDIRECTED PRN PRN Reason: Keep Vein Open Last Admin: 02/09/21 10:28 Dose: 10 ml Documented by: Discontinued Medications Albuterol/Ipratropium (Albuterol/Ipratropium 3.0-0.5 Mg/3 Ml Neb Soln) 3 ml NEB ONETIME ONE Stop: 02/09/21 10:03 Last Admin: 02/09/21 10:16 Dose: 3 ml Documented by: Dexamethasone (Dexamethasone 4 Mg/Ml Sdv) 6 mg IVPUSH ONETIME ONE Stop: 02/09/21 13:07 Last Admin: 02/09/21 13:53 Dose: 6 mg Documented by: Hydralazine HCl (Hydralazine 20 Mg/Ml Sdv) 10 mg IVPUSH Q4H PRN PRN Reason: Hypertension Sodium Chloride (Normal Saline) 1,000 mls @ 1,000 mls/hr IV .BOLUS KT Last Admin: 02/09/21 10:28 Dose: 1,000 mls/hr Documented by: Remdesivir 200 mg/ Sodium (Chloride) 250 mls @ 250 mls/hr IV ONETIME ONE Stop: 02/09/21 13:07 Last Admin: 02/09/21 13:54 Dose: Not Given Documented by: Remdesivir 200 mg/ Sodium (Chloride) 250 mls @ 250 mls/hr IV ONETIME ONE Stop: 02/09/21 14:29 Last Admin: 02/09/21 13:53 Dose: 250 mls/hr Documented by: Iopamidol (Iopamidol 755 Mg/Ml 100 Ml Bottle) 100 ml IVPUSH ONETIME ONE Stop: 02/09/21 11:24 Last Admin: 02/09/21 11:47 Dose: 100 ml Documented by: Metoprolol Tartrate (Metoprolol Tartrate 5 Mg/5 Ml Sdv) 5 mg IVPUSH Q4H PRN PRN Reason: Tachycardia Last Admin: 02/09/21 19:35 Dose: 5 mg Documented by: Sodium Chloride (Sodium Chloride 0.9% 10 Ml Syringe) 10 ml FLUSH ONETIME PRN PRN Reason: IV FLUSH Last Admin: 02/09/21 11:47 Dose: 10 ml Documented by: - Exam Quality Assessment: Supplemental Oxygen, DVT Prophylaxis General: Alert, Oriented, Cooperative, No Acute Distress HEENT: Pupils Equal, Pupils Reactive, EOMI Neck: Supple, Trachea Midline Lungs: Normal Respiratory Effort, Rales Cardiovascular: Regular Rate, Regular Rhythm GI/Abdominal Exam: Normal Bowel Sounds, Soft, Non-Tender, No Distention (Male) Exam: Deferred Back Exam: Normal Inspection, Full Range of Motion Extremities: Normal Inspection, No Pedal Edema Skin: Warm, Dry, Intact Neurological: No New Focal Deficit Psy/Mental Status: Alert, Normal Affect - Patient Data Lab Results Last 24 hrs: Laboratory Results - last 24 hr 02/09/21 02/09/21 02/09/21 Range/Units 09:55 09:55 09:55 WBC 8.76 (4.23-9.07) K/mm3 RBC 4.43 L (4.63-6.08) M/mm3 Hgb 13.6 L (13.7-17.5) gm/dl Hct 40.7 (40.1-51.0) % MCV 91.9 (79.0-92.2) fl MCH 30.7 (25.7-32.2) pg MCHC 33.4 (32.2-35.5) g/dl RDW Std Deviation 42.1 (35.1-43.9) fL Plt Count 254 (163-337) K/mm3 MPV 9.8 (9.4-12.3) fl Neut % (Auto) 84.4 H (34.0-67.9) % Lymph % (Auto) 6.2 L (21.8-53.1) % Andrew % (Auto) 6.7 (5.3-12.2) % Eos % (Auto) 0.2 L (0.8-7.0) Baso % (Auto) 0.2 (0.1-1.2) % Neut # (Auto) 7.39 H (1.78-5.38) K/mm3 Lymph # (Auto) 0.54 L (1.32-3.57) K/mm3 Andrew # (Auto) 0.59 (0.30-0.82) K/mm3 Eos # (Auto) 0.02 L (0.04-0.54) K/mm3 Baso # (Auto) 0.02 (0.01-0.08) K/mm3 Manual Slide Review PT 10.9 (9.7-12.0) SECONDS INR 0.98 APTT 27.6 (21.7-31.4) SECONDS D-Dimer, Quantitative > 35.20 H (0.19-0.50) mg/L Sodium 139 (136-145) mEq/L Potassium 3.8 (3.5-5.1) mEq/L Chloride 103 (98-107) mEq/L Carbon Dioxide 26 (21-32) mEq/L Anion Gap 13.8 (5-15) BUN 12 (7-18) mg/dL Creatinine 1.0 (0.7-1.3) mg/dL Est Cr Clr Drug Dosing 72.53 mL/min Estimated GFR (MDRD) > 60 (>60) mL/min BUN/Creatinine Ratio 12.0 L (14-18) Glucose 128 H (70-99) mg/dL Lactic Acid (0.4-2.0) mmol/L Calcium 9.2 (8.5-10.1) mg/dL Phosphorus (2.6-4.7) mg/dL Magnesium (1.8-2.4) mg/dL Total Bilirubin 1.0 (0.2-1.0) mg/dL AST 43 H (15-37) U/L ALT 66 H (16-63) U/L Alkaline Phosphatase 50 (46-116) U/L Troponin I 0.203 H* (0.00-0.056) ng/mL C-Reactive Protein 19.8 H* (<1.0) mg/dL NT-Pro-B Natriuret Pep (0-125) pg/mL Total Protein 7.4 (6.4-8.2) g/dl Albumin 2.9 L (3.4-5.0) g/dl Globulin 4.5 gm/dL Albumin/Globulin Ratio 0.6 L (1-2) 02/09/21 02/09/21 02/10/21 Range/Units 09:55 10:30 04:30 WBC 7.52 (4.23-9.07) K/mm3 RBC 3.83 L (4.63-6.08) M/mm3 Hgb 11.9 L D (13.7-17.5) gm/dl Hct 35.3 L (40.1-51.0) % MCV 92.2 (79.0-92.2) fl MCH 31.1 (25.7-32.2) pg MCHC 33.7 (32.2-35.5) g/dl RDW Std Deviation 41.8 (35.1-43.9) fL Plt Count 211 (163-337) K/mm3 MPV 9.8 (9.4-12.3) fl Neut % (Auto) 76.7 H (34.0-67.9) % Lymph % (Auto) 13.8 L (21.8-53.1) % Andrew % (Auto) 8.5 (5.3-12.2) % Eos % (Auto) 0 L (0.8-7.0) Baso % (Auto) 0.1 (0.1-1.2) % Neut # (Auto) 5.76 H (1.78-5.38) K/mm3 Lymph # (Auto) 1.04 L (1.32-3.57) K/mm3 Andrew # (Auto) 0.64 (0.30-0.82) K/mm3 Eos # (Auto) 0.00 L (0.04-0.54) K/mm3 Baso # (Auto) 0.01 (0.01-0.08) K/mm3 Manual Slide Review Abnormal smear PT (9.7-12.0) SECONDS INR APTT (21.7-31.4) SECONDS D-Dimer, Quantitative (0.19-0.50) mg/L Sodium (136-145) mEq/L Potassium (3.5-5.1) mEq/L Chloride (98-107) mEq/L Carbon Dioxide (21-32) mEq/L Anion Gap (5-15) BUN (7-18) mg/dL Creatinine (0.7-1.3) mg/dL Est Cr Clr Drug Dosing mL/min Estimated GFR (MDRD) (>60) mL/min BUN/Creatinine Ratio (14-18) Glucose (70-99) mg/dL Lactic Acid 1.3 (0.4-2.0) mmol/L Calcium (8.5-10.1) mg/dL Phosphorus (2.6-4.7) mg/dL Magnesium (1.8-2.4) mg/dL Total Bilirubin (0.2-1.0) mg/dL AST (15-37) U/L ALT (16-63) U/L Alkaline Phosphatase (46-116) U/L Troponin I (0.00-0.056) ng/mL C-Reactive Protein (<1.0) mg/dL NT-Pro-B Natriuret Pep 244 H (0-125) pg/mL Total Protein (6.4-8.2) g/dl Albumin (3.4-5.0) g/dl Globulin gm/dL Albumin/Globulin Ratio (1-2) 02/10/21 Range/Units 04:30 WBC (4.23-9.07) K/mm3 RBC (4.63-6.08) M/mm3 Hgb (13.7-17.5) gm/dl Hct (40.1-51.0) % MCV (79.0-92.2) fl MCH (25.7-32.2) pg MCHC (32.2-35.5) g/dl RDW Std Deviation (35.1-43.9) fL Plt Count (163-337) K/mm3 MPV (9.4-12.3) fl Neut % (Auto) (34.0-67.9) % Lymph % (Auto) (21.8-53.1) % Andrew % (Auto) (5.3-12.2) % Eos % (Auto) (0.8-7.0) Baso % (Auto) (0.1-1.2) % Neut # (Auto) (1.78-5.38) K/mm3 Lymph # (Auto) (1.32-3.57) K/mm3 Andrew # (Auto) (0.30-0.82) K/mm3 Eos # (Auto) (0.04-0.54) K/mm3 Baso # (Auto) (0.01-0.08) K/mm3 Manual Slide Review PT (9.7-12.0) SECONDS INR APTT (21.7-31.4) SECONDS D-Dimer, Quantitative (0.19-0.50) mg/L Sodium 142 (136-145) mEq/L Potassium 4.2 (3.5-5.1) mEq/L Chloride 106 (98-107) mEq/L Carbon Dioxide 25 (21-32) mEq/L Anion Gap 15.2 H (5-15) BUN 15 (7-18) mg/dL Creatinine 0.9 (0.7-1.3) mg/dL Est Cr Clr Drug Dosing 80.58 mL/min Estimated GFR (MDRD) > 60 (>60) mL/min BUN/Creatinine Ratio 16.7 (14-18) Glucose 127 H (70-99) mg/dL Lactic Acid (0.4-2.0) mmol/L Calcium 8.4 L (8.5-10.1) mg/dL Phosphorus 3.1 (2.6-4.7) mg/dL Magnesium 1.9 (1.8-2.4) mg/dL Total Bilirubin 0.7 (0.2-1.0) mg/dL AST 34 (15-37) U/L ALT 50 (16-63) U/L Alkaline Phosphatase 42 L (46-116) U/L Troponin I (0.00-0.056) ng/mL C-Reactive Protein 17.9 H* (<1.0) mg/dL NT-Pro-B Natriuret Pep (0-125) pg/mL Total Protein 5.8 L (6.4-8.2) g/dl Albumin 2.5 L (3.4-5.0) g/dl Globulin 3.3 gm/dL Albumin/Globulin Ratio 0.8 L (1-2) Result Diagrams: 02/10/21 04:30 02/10/21 04:30 Sepsis Event Note - Evaluation Sepsis Screening Result: No Definite Risk - Focused Exam Vital Signs: Vital Signs Temp Pulse Resp BP BP Pulse Ox 02/10/21 06:00 61 94 L 02/10/21 04:00 36.3 C 51 L 20 154/94 H 97 02/10/21 03:00 55 L 94 L 02/10/21 02:00 79 93 L 02/10/21 01:00 84 89 L 02/10/21 00:00 36.3 C 68 20 157/88 H 95 02/09/21 23:00 74 95 02/09/21 22:00 77 94 L 02/09/21 21:00 99 97 02/09/21 20:41 95 159/95 H 02/09/21 20:03 98 159/73 H 95 02/09/21 20:00 36.2 C 24 H 159/73 H 93 L 02/09/21 19:35 103 H 171/101 H - Problem List & Annotations (1) Acute respiratory failure due to COVID-19 SNOMED Code(s): 352247739 Code(s): U07.1 - COVID-19; J96.00 - ACUTE RESPIRATORY FAILURE, UNSP W HYPOXIA OR HYPERCAPNIA Status: Acute Priority: High Current Visit: Yes (2) Pneumonia due to COVID-19 virus SNOMED Code(s): 281922965027742152 Code(s): U07.1 - COVID-19; J12.82 - PNEUMONIA DUE TO CORONAVIRUS DISEASE 2019 Status: Acute Priority: High Current Visit: Yes (3) Elevated troponin level not due to acute coronary syndrome SNOMED Code(s): 068478816, 356019666, 311099480 Code(s): R77.8 - OTHER SPECIFIED ABNORMALITIES OF PLASMA PROTEINS Status: Acute Priority: High Current Visit: Yes - Problem List Review Problem List Initiated/Reviewed/Updated: Yes - Plan Plan:: 60-year-old male with COVID-19 for symptomatic on January 28, 2021 COVID-19 pneumonia Respiratory failure * Symptomatic for 12 days * Given 1 L IV bolus, DuoNeb, dexamethasone, remdesivir in the emergency department * CTA of the chest was negative for pulmonary embolism but compatible with diffuse Covid pneumonia. * WBC of 8.76, D-dimer greater than 35, CRP 19.8, troponin 0 0.203, proBNP 244, albumin 2.9 * On high flow nasal cannula Elevated troponin consistent with type II [place] Elevated blood pressure without diagnosis of hypertension * Likely secondary to increased work from tachycardia, hypoxemia, and Covid * EKG showed no acute ST-T wave changes. * No indication for cardiac catheterization. * Treat underlying cause of hypoxemia. * Repeating troponin is not beneficial. DVT within the right popliteal, posterior tibial, and peroneal veins * D-dimer was greater than 35 without a PE * Leg started swelling 2 days ago * Minimal pain. Plan * Admit to medical floor * FiO2 to keep SPO2 between 88 and 94%. Currently on high flow nasal cannula. * Metoprolol 5 mg IV every 4 hours as needed hypertension or tachycardia * Eliquis 10 mg twice daily for 7 days then 5 mg twice daily * Continue dexamethasone, remdesivir * As needed duo nebs and albuterol * Routine COVID-19 treatment protocol to include I-S, RT, prone positioning, and other * Consider baricitinib. Patient was given handout on EUA on baricitinib. Patient agreed to treatment with baricitinib. * Follow CBC, CMP, mag, Phos, CRP. No benefit from following D-dimer. * Hydralazine 10 mg IV for hypertension * CODE STATUS: Full code I spoke with patient to provide information about baricitinib. I offered the "fax sheet for patients and parents/caregivers, for baricitinib" to read and review. I stated that therapy has been approved by an emergency use authorization process and has not fully been FDA reviewed or approved. I shared potential risks from the therapy including increased risk for serious infections, anaphylaxis, and reaction to medication. I discussed there are other potential treatment options that are currently not FDA approved to treat COVID-19. Offered opportunity to ask questions and all questions were answered. Patient voiced understanding and agreed to proceed with treatment. 02/10/2021 The patient is a 60-year-old gentleman who remains on high flow oxygen. This is due to COVID-19 associated pneumonia. The patient is on apixaban from a previous DVT and this will continue with his DVT prophylaxis as well. The patient also is on baricitinib for his Covid pneumonia as well as dexamethasone. Those medications will be continued. The patient's remdesivir has continued and is scheduled to run until February 13. Repeat laboratory studies have been ordered for the patient. He has been encouraged to ambulate. He will have his regular diet as tolerated. The patient should be appropriate for discharge once his oxygen demands have improved. Patient does have elevations of his troponins and this is likely secondary to the COVID-19 pneumonia.
[2021-02-10] MEDS: Dexamethasone 4 MG Tab PO SCH (08:31)
[2021-02-10] MEDS: Apixaban 5 MG Tab PO SCH ×2 (08:32→20:31)
[2021-02-10] MEDS: Metoprolol Tartrate 25 MG Tab PO SCH ×2 (08:32→20:30)
[2021-02-10] MEDS: Aspirin 81 MG Tab.EC PO SCH (08:32)
[2021-02-10] MEDS: Lisinopril 10 MG Tab PO SCH (14:23)
[2021-02-10] MEDS: REMDESIVIR 100 MG in Sodium Chloride 0.9% 100 ML IV SCH (17:17)
[2021-02-10] MEDS ORDERED: cloNIDine 0.1 MG Tab PO ONE (18:01)
[2021-02-11] MEDS: Aspirin 81 MG Tab.EC PO SCH (07:59)
[2021-02-11] MEDS: Apixaban 5 MG Tab PO SCH ×2 (07:59→20:50)
[2021-02-11] MEDS: Metoprolol Tartrate 25 MG Tab PO SCH ×2 (07:59→20:51)
[2021-02-11] MEDS: Dexamethasone 4 MG Tab PO SCH (07:59)
[2021-02-11] MEDS: Lisinopril 10 MG Tab PO SCH (07:59)
--- NOTE | 2021-02-11 09:06 | PCM.PN ---
- General Info Date of Service: 02/11/21 Admission Dx/Problem (Free Text): Admission Diagnosis/Problem Admission Diagnosis/Problem Pneumonia Subjective Update: The patient is a 60-year-old gentleman who was admitted on February 09, 2021 secondary to COVID-19 associated with pneumonia and acute respiratory failure and he remains in ICU.. The patient today says that he feels much better. The patient has been tolerating his diet. The patient has no other complaints today. Functional Status: Reports: Pain Controlled. Denies: New Symptoms - Review of Systems General: Reports: No Symptoms HEENT: Reports: No Symptoms Pulmonary: Reports: Shortness of Breath, Cough Cardiovascular: Reports: No Symptoms Gastrointestinal: Reports: No Symptoms Genitourinary: Reports: No Symptoms Musculoskeletal: Reports: No Symptoms Skin: Reports: No Symptoms Neurological: Reports: No Symptoms Psychiatric: Reports: No Symptoms - Patient Data Vitals - Most Recent: Last Vital Signs Temp 36.0 C L 02/11/21 08:00 Pulse 78 02/11/21 07:59 Resp 20 02/11/21 08:00 BP 153/97 H 02/11/21 07:59 Pulse Ox 92 L 02/11/21 08:00 Weight - Most Recent: 97.885 kg I&O - Last 24 Hours: Intake & Output 02/10/21 02/11/21 02/11/21 22:59 06:59 14:59 Intake Total 1291 800 Balance 1291 800 Lab Results Last 24 Hours: Laboratory Results - last 24 hr 02/11/21 02/11/21 Range/Units 04:44 04:44 WBC 9.97 H (4.23-9.07) K/mm3 RBC 3.84 L (4.63-6.08) M/mm3 Hgb 11.9 L (13.7-17.5) gm/dl Hct 35.8 L (40.1-51.0) % MCV 93.2 H (79.0-92.2) fl MCH 31.0 (25.7-32.2) pg MCHC 33.2 (32.2-35.5) g/dl RDW Std Deviation 42.1 (35.1-43.9) fL Plt Count 239 (163-337) K/mm3 MPV 10.3 (9.4-12.3) fl Neut % (Auto) 77.5 H (34.0-67.9) % Lymph % (Auto) 13.2 L (21.8-53.1) % [place] % (Auto) 8.2 (5.3-12.2) % Eos % (Auto) 0 L (0.8-7.0) Baso % (Auto) 0.1 (0.1-1.2) % Neut # (Auto) 7.72 H (1.78-5.38) K/mm3 Lymph # (Auto) 1.32 (1.32-3.57) K/mm3 [place] # (Auto) 0.82 (0.30-0.82) K/mm3 Eos # (Auto) 0.00 L (0.04-0.54) K/mm3 Baso # (Auto) 0.01 (0.01-0.08) K/mm3 Sodium 141 (136-145) mEq/L Potassium 4.6 (3.5-5.1) mEq/L Chloride 107 (98-107) mEq/L Carbon Dioxide 27 (21-32) mEq/L Anion Gap 11.6 (5-15) BUN 23 H (7-18) mg/dL Creatinine 1.0 (0.7-1.3) mg/dL Est Cr Clr Drug Dosing 72.53 mL/min Estimated GFR (MDRD) > 60 (>60) mL/min BUN/Creatinine Ratio 23.0 H (14-18) Glucose 121 H (70-99) mg/dL Calcium 8.6 (8.5-10.1) mg/dL Phosphorus 4.0 (2.6-4.7) mg/dL Magnesium 2.1 (1.8-2.4) mg/dL Total Bilirubin 0.4 (0.2-1.0) mg/dL AST 27 (15-37) U/L ALT 52 (16-63) U/L Alkaline Phosphatase 43 L (46-116) U/L Troponin I 0.144 H* (0.00-0.056) ng/mL C-Reactive Protein 8.4 H* (<1.0) mg/dL Total Protein 5.8 L (6.4-8.2) g/dl Albumin 2.4 L (3.4-5.0) g/dl Globulin 3.4 gm/dL Albumin/Globulin Ratio 0.7 L (1-2) Med Orders - Current: Current Medications Acetaminophen (Acetaminophen 325 Mg Tab) 650 mg PO Q4H PRN PRN Reason: Pain (Mild 1-3)/fever Apixaban (Apixaban 5 Mg Tab) 10 mg PO BID [facility] Last Admin: 02/11/21 07:59 Dose: 10 mg Documented by: Aspirin (Aspirin 81 Mg Tab.Ec) 81 mg PO DAILY [facility] Last Admin: 02/11/21 07:59 Dose: 81 mg Documented by: Baricitinib (Baricitinib 2 Mg Tab) 4 mg PO BEDTIME [facility] Last Admin: 02/10/21 20:30 Dose: 4 mg Documented by: Dexamethasone (Dexamethasone 4 Mg Tab) 6 mg PO DAILY [facility] Stop: 02/19/21 09:01 Last Admin: 02/11/21 07:59 Dose: 6 mg Documented by: Sodium Chloride (Normal Saline) 100 mls @ 75 mls/hr IV ASDIRECTED [facility] Last Admin: 02/09/21 11:47 Dose: 75 mls/hr Documented by: Remdesivir 100 mg/ Sodium (Chloride) 100 mls @ 100 mls/hr IV Q24H [facility] Stop: 02/13/21 17:59 Last Admin: 02/10/21 17:17 Dose: 100 mls/hr Documented by: Lisinopril (Lisinopril 10 Mg Tab) 10 mg PO DAILY [facility] Last Admin: 02/11/21 07:59 Dose: 10 mg Documented by: Metoprolol Tartrate (Metoprolol Tartrate 5 Mg/5 Ml Sdv) 5 mg IVPUSH Q4H PRN PRN Reason: Hypertension Metoprolol Tartrate (Metoprolol Tartrate 25 Mg Tab) 25 mg PO Q12H [facility] Last Admin: 02/11/21 07:59 Dose: 25 mg Documented by: Ondansetron HCl (Ondansetron 4 Mg/2 Ml Sdv) 4 mg IV Q4H PRN PRN Reason: Nausea/Vomiting Sodium Chloride (Sodium Chloride 0.9% 10 Ml Syringe) 10 ml FLUSH ASDIRECTED PRN PRN Reason: Keep Vein Open Last Admin: 02/09/21 10:28 Dose: 10 ml Documented by: Discontinued Medications Albuterol/Ipratropium (Albuterol/Ipratropium 3.0-0.5 Mg/3 Ml Neb Soln) 3 ml NEB ONETIME ONE Stop: 02/09/21 10:03 Last Admin: 02/09/21 10:16 Dose: 3 ml Documented by: Clonidine HCl (Clonidine 0.1 Mg Tab) 0.1 mg PO ONETIME ONE Stop: 02/10/21 18:02 Last Admin: 02/10/21 18:27 Dose: 0.1 mg Documented by: Dexamethasone (Dexamethasone 4 Mg/Ml Sdv) 6 mg IVPUSH ONETIME ONE Stop: 02/09/21 13:07 Last Admin: 02/09/21 13:53 Dose: 6 mg Documented by: Hydralazine HCl (Hydralazine 20 Mg/Ml Sdv) 10 mg IVPUSH Q4H PRN PRN Reason: Hypertension Sodium Chloride (Normal Saline) 1,000 mls @ 1,000 mls/hr IV .BOLUS KT Last Admin: 02/09/21 10:28 Dose: 1,000 mls/hr Documented by: Remdesivir 200 mg/ Sodium (Chloride) 250 mls @ 250 mls/hr IV ONETIME ONE Stop: 02/09/21 13:07 Last Admin: 02/09/21 13:54 Dose: Not Given Documented by: Remdesivir 200 mg/ Sodium (Chloride) 250 mls @ 250 mls/hr IV ONETIME ONE Stop: 02/09/21 14:29 Last Admin: 02/09/21 13:53 Dose: 250 mls/hr Documented by: Iopamidol (Iopamidol 755 Mg/Ml 100 Ml Bottle) 100 ml IVPUSH ONETIME ONE Stop: 02/09/21 11:24 Last Admin: 02/09/21 11:47 Dose: 100 ml Documented by: Metoprolol Tartrate (Metoprolol Tartrate 5 Mg/5 Ml Sdv) 5 mg IVPUSH Q4H PRN PRN Reason: Tachycardia Last Admin: 02/09/21 19:35 Dose: 5 mg Documented by: Sodium Chloride (Sodium Chloride 0.9% 10 Ml Syringe) 10 ml FLUSH ONETIME PRN PRN Reason: IV FLUSH Last Admin: 02/09/21 11:47 Dose: 10 ml Documented by: - Exam Quality Assessment: Supplemental Oxygen, DVT Prophylaxis General: Alert, Oriented, Cooperative, No Acute Distress HEENT: Pupils Equal, Pupils Reactive, EOMI Neck: Supple, Trachea Midline Lungs: Decreased Breath Sounds, Rales (Bibasilar) Cardiovascular: Regular Rate, Regular Rhythm GI/Abdominal Exam: Normal Bowel Sounds, Soft, Non-Tender, No Distention (Male) Exam: Deferred Back Exam: Normal Inspection, Full Range of Motion Extremities: Normal Inspection, No Pedal Edema Skin: Warm, Dry, Intact Neurological: No New Focal Deficit Psy/Mental Status: Alert, Normal Affect, Normal Mood - Patient Data Lab Results Last 24 hrs: Laboratory Results - last 24 hr 02/11/21 02/11/21 Range/Units 04:44 04:44 WBC 9.97 H (4.23-9.07) K/mm3 RBC 3.84 L (4.63-6.08) M/mm3 Hgb 11.9 L (13.7-17.5) gm/dl Hct 35.8 L (40.1-51.0) % MCV 93.2 H (79.0-92.2) fl MCH 31.0 (25.7-32.2) pg MCHC 33.2 (32.2-35.5) g/dl RDW Std Deviation 42.1 (35.1-43.9) fL Plt Count 239 (163-337) K/mm3 MPV 10.3 (9.4-12.3) fl Neut % (Auto) 77.5 H (34.0-67.9) % Lymph % (Auto) 13.2 L (21.8-53.1) % [place] % (Auto) 8.2 (5.3-12.2) % Eos % (Auto) 0 L (0.8-7.0) Baso % (Auto) 0.1 (0.1-1.2) % Neut # (Auto) 7.72 H (1.78-5.38) K/mm3 Lymph # (Auto) 1.32 (1.32-3.57) K/mm3 [place] # (Auto) 0.82 (0.30-0.82) K/mm3 Eos # (Auto) 0.00 L (0.04-0.54) K/mm3 Baso # (Auto) 0.01 (0.01-0.08) K/mm3 Sodium 141 (136-145) mEq/L Potassium 4.6 (3.5-5.1) mEq/L Chloride 107 (98-107) mEq/L Carbon Dioxide 27 (21-32) mEq/L Anion Gap 11.6 (5-15) BUN 23 H (7-18) mg/dL Creatinine 1.0 (0.7-1.3) mg/dL Est Cr Clr Drug Dosing 72.53 mL/min Estimated GFR (MDRD) > 60 (>60) mL/min BUN/Creatinine Ratio 23.0 H (14-18) Glucose 121 H (70-99) mg/dL Calcium 8.6 (8.5-10.1) mg/dL Phosphorus 4.0 (2.6-4.7) mg/dL Magnesium 2.1 (1.8-2.4) mg/dL Total Bilirubin 0.4 (0.2-1.0) mg/dL AST 27 (15-37) U/L ALT 52 (16-63) U/L Alkaline Phosphatase 43 L (46-116) U/L Troponin I 0.144 H* (0.00-0.056) ng/mL C-Reactive Protein 8.4 H* (<1.0) mg/dL Total Protein 5.8 L (6.4-8.2) g/dl Albumin 2.4 L (3.4-5.0) g/dl Globulin 3.4 gm/dL Albumin/Globulin Ratio 0.7 L (1-2) Result Diagrams: 02/11/21 04:44 02/11/21 04:44 Sepsis Event Note - Evaluation Sepsis Screening Result: No Definite Risk - Focused Exam Vital Signs: Vital Signs Temp Pulse Resp BP BP Pulse Ox 02/11/21 08:00 36.0 C L 20 92 L 02/11/21 07:59 78 153/97 H 02/11/21 07:57 153/97 H 02/11/21 07:54 85 L 02/11/21 07:00 96 02/11/21 06:00 92 L 02/11/21 05:03 88 L 02/11/21 04:42 99 02/11/21 04:00 35.8 C L 20 143/90 H 96 02/11/21 03:00 95 02/11/21 02:00 93 L 02/11/21 01:01 94 L 02/11/21 00:00 36.0 C L 20 137/68 92 L 02/10/21 23:00 92 L 02/10/21 22:00 96 - Problem List & Annotations (1) Acute respiratory failure due to COVID-19 SNOMED Code(s): 311170105 Code(s): U07.1 - COVID-19; J96.00 - ACUTE RESPIRATORY FAILURE, UNSP W HYPOXIA OR HYPERCAPNIA Status: Acute Priority: High Current Visit: Yes (2) Pneumonia due to COVID-19 virus SNOMED Code(s): 401310168672715472 Code(s): U07.1 - COVID-19; J12.82 - PNEUMONIA DUE TO CORONAVIRUS DISEASE 2019 Status: Acute Priority: High Current Visit: Yes (3) Elevated troponin level not due to acute coronary syndrome SNOMED Code(s): 593285442, 884001380, 029510055 Code(s): R77.8 - OTHER SPECIFIED ABNORMALITIES OF PLASMA PROTEINS Status: Acute Priority: High Current Visit: Yes (4) Hypertension SNOMED Code(s): 43925762 Code(s): I10 - ESSENTIAL (PRIMARY) HYPERTENSION Status: Chronic Priority: High Current Visit: Yes Qualifiers: Hypertension type: primary hypertension Qualified Code(s): I10 - Essential (primary) hypertension - Problem List Review Problem List Initiated/Reviewed/Updated: Yes - My Orders Last 24 Hours: My Active Orders 02/10/21 14:00 lisinopriL [Prinivil] 10 mg PO DAILY - Plan Plan:: 60-year-old male with COVID-19 for symptomatic on January 28, 2021 COVID-19 pneumonia Respiratory failure * Symptomatic for 12 days * Given 1 L IV bolus, DuoNeb, dexamethasone, remdesivir in the emergency department * CTA of the chest was negative for pulmonary embolism but compatible with diffuse Covid pneumonia. * WBC of 8.76, D-dimer greater than 35, CRP 19.8, troponin 0 0.203, proBNP 244, albumin 2.9 * On high flow nasal cannula Elevated troponin consistent with type II NM Elevated blood pressure without diagnosis of hypertension * Likely secondary to increased work from tachycardia, hypoxemia, and Covid * EKG showed no acute ST-T wave changes. * No indication for cardiac catheterization. * Treat underlying cause of hypoxemia. * Repeating troponin is not beneficial. DVT within the right popliteal, posterior tibial, and peroneal veins * D-dimer was greater than 35 without a PE * Leg started swelling 2 days ago * Minimal pain. Plan * Admit to medical floor * FiO2 to keep SPO2 between 88 and 94%. Currently on high flow nasal cannula. * Metoprolol 5 mg IV every 4 hours as needed hypertension or tachycardia * Eliquis 10 mg twice daily for 7 days then 5 mg twice daily * Continue dexamethasone, remdesivir * As needed duo nebs and albuterol * Routine COVID-19 treatment protocol to include I-S, RT, prone positioning, and other * Consider baricitinib. Patient was given handout on EUA on baricitinib. Patient agreed to treatment with baricitinib. * Follow CBC, CMP, mag, Phos, CRP. No benefit from following D-dimer. * Hydralazine 10 mg IV for hypertension * CODE STATUS: Full code I spoke with patient to provide information about baricitinib. I offered the "fax sheet for patients and parents/caregivers, for baricitinib" to read and review. I stated that therapy has been approved by an emergency use authorization process and has not fully been FDA reviewed or approved. I shared potential risks from the therapy including increased risk for serious infections, anaphylaxis, and reaction to medication. I discussed there are other potential treatment options that are currently not FDA approved to treat COVID-19. Offered opportunity to ask questions and all questions were answered. Patient voiced understanding and agreed to proceed with treatment. 02/10/2021 The patient is a 60-year-old gentleman who remains on high flow oxygen. This is due to COVID-19 associated pneumonia. The patient is on apixaban from a previous DVT and this will continue with his DVT prophylaxis as well. The patient also is on baricitinib for his Covid pneumonia as well as dexamethasone. Those medications will be continued. The patient's remdesivir has continued and is scheduled to run until February 13. Repeat laboratory studies have been ordered for the patient. He has been encouraged to ambulate. He will have his regular diet as tolerated. The patient should be appropriate for discharge once his oxygen demands have improved. Patient does have elevations of his troponins and this is likely secondary to the COVID-19 pneumonia. 02/11/2021 The patient is a 60-year-old gentleman who remain in ICU secondary to his requirements for high flow oxygen. The patient is also on baricitinib as well as remdesivir. The patient's remdesivir is scheduled to run through February 13, 2021. At that time the patient may be appropriate for discharge if his oxygen demands have decreased. He will be titrated on his oxygen to keep his saturations around 92%. The patient has been doing well with his hypertension with the use of lisinopril which had been given yesterday afternoon. He did have urgent use of clonidine 0.1 mg 1 time prior to bedtime. Continue to monitor his vital signs with telemetry and his medications will be adjusted as necessary. Patient's DVT prophylaxis will continue with the use of the apixaban 10 mg p.o. twice daily. Repeat laboratory studies have been ordered.
[2021-02-11] MEDS: REMDESIVIR 100 MG in Sodium Chloride 0.9% 100 ML IV SCH (16:11)
[2021-02-12] MEDS: Aspirin 81 MG Tab.EC PO SCH (08:13)
[2021-02-12] MEDS: Lisinopril 10 MG Tab PO SCH (08:14)
[2021-02-12] MEDS: Apixaban 5 MG Tab PO SCH ×2 (08:14→20:46)
[2021-02-12] MEDS: Metoprolol Tartrate 25 MG Tab PO SCH ×2 (08:17→20:46)
[2021-02-12] MEDS: Dexamethasone 4 MG Tab PO SCH (08:18)
--- NOTE | 2021-02-12 08:50 | PCM.PN ---
- General Info Date of Service: 02/12/21 Admission Dx/Problem (Free Text): Admission Diagnosis/Problem Admission Diagnosis/Problem Pneumonia due to COVID-19 Subjective Update: The patient is a 60-year-old gentleman who is doing better today. He was admitted on February 09, 2021 due to Covid 19 pneumonia. Today the patient says that he is breathing better. He also says that he has been feeling better. He has been tolerating his diet. No pain. Functional Status: Reports: Pain Controlled, Tolerating Diet. Denies: New Symptoms - Review of Systems General: Reports: No Symptoms HEENT: Reports: No Symptoms Pulmonary: Reports: Shortness of Breath Cardiovascular: Reports: No Symptoms Gastrointestinal: Reports: No Symptoms Genitourinary: Reports: No Symptoms Musculoskeletal: Reports: No Symptoms Skin: Reports: No Symptoms Neurological: Reports: No Symptoms Psychiatric: Reports: No Symptoms - Patient Data Vitals - Most Recent: Last Vital Signs Temp 36.6 C 02/12/21 04:00 Pulse 74 02/12/21 08:17 Resp 22 H 02/12/21 04:00 BP 172/90 H 02/12/21 08:17 Pulse Ox 92 L 02/12/21 06:30 Weight - Most Recent: 98.248 kg I&O - Last 24 Hours: Intake & Output 02/11/21 02/12/21 02/12/21 22:59 06:59 14:59 Intake Total 1100 800 Balance 1100 800 Lab Results Last 24 Hours: Laboratory Results - last 24 hr 02/12/21 02/12/21 Range/Units 05:48 05:48 WBC 11.38 H (4.23-9.07) K/mm3 RBC 4.14 L (4.63-6.08) M/mm3 Hgb 12.5 L (13.7-17.5) gm/dl Hct 38.3 L (40.1-51.0) % MCV 92.5 H (79.0-92.2) fl MCH 30.2 (25.7-32.2) pg MCHC 32.6 (32.2-35.5) g/dl RDW Std Deviation 41.3 (35.1-43.9) fL Plt Count 273 (163-337) K/mm3 MPV 10.2 (9.4-12.3) fl Neut % (Auto) 76.2 H (34.0-67.9) % Lymph % (Auto) 13.7 L (21.8-53.1) % [place] % (Auto) 8.8 (5.3-12.2) % Eos % (Auto) 0 L (0.8-7.0) Baso % (Auto) 0.1 (0.1-1.2) % Neut # (Auto) 8.67 H (1.78-5.38) K/mm3 Lymph # (Auto) 1.56 (1.32-3.57) K/mm3 [place] # (Auto) 1.00 H (0.30-0.82) K/mm3 Eos # (Auto) 0.00 L (0.04-0.54) K/mm3 Baso # (Auto) 0.01 (0.01-0.08) K/mm3 Sodium 139 (136-145) mEq/L Potassium 4.3 (3.5-5.1) mEq/L Chloride 106 (98-107) mEq/L Carbon Dioxide 25 (21-32) mEq/L Anion Gap 12.3 (5-15) BUN 24 H (7-18) mg/dL Creatinine 0.9 (0.7-1.3) mg/dL Est Cr Clr Drug Dosing 80.58 mL/min Estimated GFR (MDRD) > 60 (>60) mL/min BUN/Creatinine Ratio 26.7 H (14-18) Glucose 101 H (70-99) mg/dL Calcium 8.6 (8.5-10.1) mg/dL Phosphorus 3.6 (2.6-4.7) mg/dL Magnesium 2.0 (1.8-2.4) mg/dL Total Bilirubin 0.5 (0.2-1.0) mg/dL AST 27 (15-37) U/L ALT 57 (16-63) U/L Alkaline Phosphatase 52 (46-116) U/L C-Reactive Protein 4.4 H* (<1.0) mg/dL Total Protein 6.0 L (6.4-8.2) g/dl Albumin 2.6 L (3.4-5.0) g/dl Globulin 3.4 gm/dL Albumin/Globulin Ratio 0.8 L (1-2) Med Orders - Current: Current Medications Acetaminophen (Acetaminophen 325 Mg Tab) 650 mg PO Q4H PRN PRN Reason: Pain (Mild 1-3)/fever Apixaban (Apixaban 5 Mg Tab) 10 mg PO BID [facility] Stop: 02/15/21 21:01 Last Admin: 02/12/21 08:14 Dose: 10 mg Documented by: Aspirin (Aspirin 81 Mg Tab.Ec) 81 mg PO DAILY [facility] Last Admin: 02/12/21 08:13 Dose: 81 mg Documented by: Baricitinib (Baricitinib 2 Mg Tab) 4 mg PO BEDTIME KT Stop: 02/22/21 21:01 Last Admin: 02/11/21 20:51 Dose: 4 mg Documented by: Dexamethasone (Dexamethasone 4 Mg Tab) 6 mg PO DAILY [facility] Stop: 02/18/21 09:01 Last Admin: 02/12/21 08:18 Dose: 6 mg Documented by: Sodium Chloride (Normal Saline) 100 mls @ 75 mls/hr IV ASDIRECTED [facility] Last Admin: 02/09/21 11:47 Dose: 75 mls/hr Documented by: Remdesivir 100 mg/ Sodium (Chloride) 100 mls @ 100 mls/hr IV Q24H [facility] Stop: 02/13/21 17:59 Last Admin: 02/11/21 16:11 Dose: 100 mls/hr Documented by: Lisinopril (Lisinopril 10 Mg Tab) 10 mg PO DAILY [facility] Last Admin: 02/12/21 08:14 Dose: 10 mg Documented by: Metoprolol Tartrate (Metoprolol Tartrate 5 Mg/5 Ml Sdv) 5 mg IVPUSH Q4H PRN PRN Reason: Hypertension Metoprolol Tartrate (Metoprolol Tartrate 25 Mg Tab) 25 mg PO Q12H [facility] Last Admin: 02/12/21 08:17 Dose: 25 mg Documented by: Ondansetron HCl (Ondansetron 4 Mg/2 Ml Sdv) 4 mg IV Q4H PRN PRN Reason: Nausea/Vomiting Sodium Chloride (Sodium Chloride 0.9% 10 Ml Syringe) 10 ml FLUSH ASDIRECTED PRN PRN Reason: Keep Vein Open Last Admin: 02/09/21 10:28 Dose: 10 ml Documented by: Discontinued Medications Albuterol/Ipratropium (Albuterol/Ipratropium 3.0-0.5 Mg/3 Ml Neb Soln) 3 ml NEB ONETIME ONE Stop: 02/09/21 10:03 Last Admin: 02/09/21 10:16 Dose: 3 ml Documented by: Clonidine HCl (Clonidine 0.1 Mg Tab) 0.1 mg PO ONETIME ONE Stop: 02/10/21 18:02 Last Admin: 02/10/21 18:27 Dose: 0.1 mg Documented by: Dexamethasone (Dexamethasone 4 Mg/Ml Sdv) 6 mg IVPUSH ONETIME ONE Stop: 02/09/21 13:07 Last Admin: 02/09/21 13:53 Dose: 6 mg Documented by: Hydralazine HCl (Hydralazine 20 Mg/Ml Sdv) 10 mg IVPUSH Q4H PRN PRN Reason: Hypertension Sodium Chloride (Normal Saline) 1,000 mls @ 1,000 mls/hr IV .BOLUS KT Last Admin: 02/09/21 10:28 Dose: 1,000 mls/hr Documented by: Remdesivir 200 mg/ Sodium (Chloride) 250 mls @ 250 mls/hr IV ONETIME ONE Stop: 02/09/21 13:07 Last Admin: 02/09/21 13:54 Dose: Not Given Documented by: Remdesivir 200 mg/ Sodium (Chloride) 250 mls @ 250 mls/hr IV ONETIME ONE Stop: 02/09/21 14:29 Last Admin: 02/09/21 13:53 Dose: 250 mls/hr Documented by: Iopamidol (Iopamidol 755 Mg/Ml 100 Ml Bottle) 100 ml IVPUSH ONETIME ONE Stop: 02/09/21 11:24 Last Admin: 02/09/21 11:47 Dose: 100 ml Documented by: Metoprolol Tartrate (Metoprolol Tartrate 5 Mg/5 Ml Sdv) 5 mg IVPUSH Q4H PRN PRN Reason: Tachycardia Last Admin: 02/09/21 19:35 Dose: 5 mg Documented by: Sodium Chloride (Sodium Chloride 0.9% 10 Ml Syringe) 10 ml FLUSH ONETIME PRN PRN Reason: IV FLUSH Last Admin: 02/09/21 11:47 Dose: 10 ml Documented by: - Exam Quality Assessment: Supplemental Oxygen, DVT Prophylaxis General: Alert, Oriented, Cooperative, No Acute Distress HEENT: Pupils Equal, Pupils Reactive, EOMI, Mucous Membr. Moist/Boone Neck: Supple, Trachea Midline Lungs: Normal Respiratory Effort, Rales Cardiovascular: Regular Rate, Regular Rhythm, No Murmurs GI/Abdominal Exam: Normal Bowel Sounds, Soft, Non-Tender, No Distention (Male) Exam: Deferred Back Exam: Normal Inspection, Full Range of Motion Extremities: Normal Inspection, Normal Range of Motion, No Pedal Edema Skin: Warm, Dry, Intact Neurological: No New Focal Deficit Psy/Mental Status: Alert, Normal Affect, Normal Mood - Patient Data Lab Results Last 24 hrs: Laboratory Results - last 24 hr 02/12/21 02/12/21 Range/Units 05:48 05:48 WBC 11.38 H (4.23-9.07) K/mm3 RBC 4.14 L (4.63-6.08) M/mm3 Hgb 12.5 L (13.7-17.5) gm/dl Hct 38.3 L (40.1-51.0) % MCV 92.5 H (79.0-92.2) fl MCH 30.2 (25.7-32.2) pg MCHC 32.6 (32.2-35.5) g/dl RDW Std Deviation 41.3 (35.1-43.9) fL Plt Count 273 (163-337) K/mm3 MPV 10.2 (9.4-12.3) fl Neut % (Auto) 76.2 H (34.0-67.9) % Lymph % (Auto) 13.7 L (21.8-53.1) % [place] % (Auto) 8.8 (5.3-12.2) % Eos % (Auto) 0 L (0.8-7.0) Baso % (Auto) 0.1 (0.1-1.2) % Neut # (Auto) 8.67 H (1.78-5.38) K/mm3 Lymph # (Auto) 1.56 (1.32-3.57) K/mm3 [place] # (Auto) 1.00 H (0.30-0.82) K/mm3 Eos # (Auto) 0.00 L (0.04-0.54) K/mm3 Baso # (Auto) 0.01 (0.01-0.08) K/mm3 Sodium 139 (136-145) mEq/L Potassium 4.3 (3.5-5.1) mEq/L Chloride 106 (98-107) mEq/L Carbon Dioxide 25 (21-32) mEq/L Anion Gap 12.3 (5-15) BUN 24 H (7-18) mg/dL Creatinine 0.9 (0.7-1.3) mg/dL Est Cr Clr Drug Dosing 80.58 mL/min Estimated GFR (MDRD) > 60 (>60) mL/min BUN/Creatinine Ratio 26.7 H (14-18) Glucose 101 H (70-99) mg/dL Calcium 8.6 (8.5-10.1) mg/dL Phosphorus 3.6 (2.6-4.7) mg/dL Magnesium 2.0 (1.8-2.4) mg/dL Total Bilirubin 0.5 (0.2-1.0) mg/dL AST 27 (15-37) U/L ALT 57 (16-63) U/L Alkaline Phosphatase 52 (46-116) U/L C-Reactive Protein 4.4 H* (<1.0) mg/dL Total Protein 6.0 L (6.4-8.2) g/dl Albumin 2.6 L (3.4-5.0) g/dl Globulin 3.4 gm/dL Albumin/Globulin Ratio 0.8 L (1-2) Result Diagrams: 02/12/21 05:48 02/12/21 05:48 Sepsis Event Note - Evaluation Sepsis Screening Result: No Definite Risk - Focused Exam Vital Signs: Vital Signs Temp Pulse Resp BP BP Pulse Ox Pulse Ox 02/12/21 08:17 74 172/90 H 02/12/21 08:14 172/90 H 02/12/21 06:30 92 L 02/12/21 06:00 92 L 02/12/21 05:00 92 L 02/12/21 04:00 36.6 C 22 H 159/79 H 90 L 02/12/21 03:00 95 02/12/21 02:00 95 02/12/21 00:26 95 02/12/21 00:00 36.8 C 20 156/88 H 92 L 02/11/21 22:00 95 02/11/21 21:00 90 L 02/11/21 20:51 60 154/78 H - Problem List & Annotations (1) Acute respiratory failure due to COVID-19 SNOMED Code(s): 536209718 Code(s): U07.1 - COVID-19; J96.00 - ACUTE RESPIRATORY FAILURE, UNSP W HYPOXIA OR HYPERCAPNIA Status: Acute Priority: High Current Visit: Yes (2) Pneumonia due to COVID-19 virus SNOMED Code(s): 563023217127112907 Code(s): U07.1 - COVID-19; J12.82 - PNEUMONIA DUE TO CORONAVIRUS DISEASE 2019 Status: Acute Priority: High Current Visit: Yes (3) Elevated troponin level not due to acute coronary syndrome SNOMED Code(s): 333642736, 155911866, 993958857 Code(s): R77.8 - OTHER SPECIFIED ABNORMALITIES OF PLASMA PROTEINS Status: Acute Priority: High Current Visit: Yes (4) Hypertension SNOMED Code(s): 98178875 Code(s): I10 - ESSENTIAL (PRIMARY) HYPERTENSION Status: Chronic Priority: High Current Visit: Yes Qualifiers: Hypertension type: primary hypertension Qualified Code(s): I10 - Essential (primary) hypertension - Problem List Review Problem List Initiated/Reviewed/Updated: Yes - My Orders Last 24 Hours: My Active Orders 02/12/21 09:00 cloNIDine [Catapres] 0.1 mg PO Q8H - Plan Plan:: 60-year-old male with COVID-19 for symptomatic on January 28, 2021 COVID-19 pneumonia Respiratory failure * Symptomatic for 12 days * Given 1 L IV bolus, DuoNeb, dexamethasone, remdesivir in the emergency department * CTA of the chest was negative for pulmonary embolism but compatible with diffuse Covid pneumonia. * WBC of 8.76, D-dimer greater than 35, CRP 19.8, troponin 0 0.203, proBNP 244, albumin 2.9 * On high flow nasal cannula Elevated troponin consistent with type II VA Elevated blood pressure without diagnosis of hypertension * Likely secondary to increased work from tachycardia, hypoxemia, and Covid * EKG showed no acute ST-T wave changes. * No indication for cardiac catheterization. * Treat underlying cause of hypoxemia. * Repeating troponin is not beneficial. DVT within the right popliteal, posterior tibial, and peroneal veins * D-dimer was greater than 35 without a PE * Leg started swelling 2 days ago * Minimal pain. Plan * Admit to medical floor * FiO2 to keep SPO2 between 88 and 94%. Currently on high flow nasal cannula. * Metoprolol 5 mg IV every 4 hours as needed hypertension or tachycardia * Eliquis 10 mg twice daily for 7 days then 5 mg twice daily * Continue dexamethasone, remdesivir * As needed duo nebs and albuterol * Routine COVID-19 treatment protocol to include I-S, RT, prone positioning, and other * Consider baricitinib. Patient was given handout on EUA on baricitinib. Patient agreed to treatment with baricitinib. * Follow CBC, CMP, mag, Phos, CRP. No benefit from following D-dimer. * Hydralazine 10 mg IV for hypertension * CODE STATUS: Full code I spoke with patient to provide information about baricitinib. I offered the "fax sheet for patients and parents/caregivers, for baricitinib" to read and review. I stated that therapy has been approved by an emergency use authorization process and has not fully been FDA reviewed or approved. I shared potential risks from the therapy including increased risk for serious infections, anaphylaxis, and reaction to medication. I discussed there are other potential treatment options that are currently not FDA approved to treat COVID-19. Offered opportunity to ask questions and all questions were answered. Patient voiced understanding and agreed to proceed with treatment. 02/10/2021 The patient is a 60-year-old gentleman who remains on high flow oxygen. This is due to COVID-19 associated pneumonia. The patient is on apixaban from a previous DVT and this will continue with his DVT prophylaxis as well. The patient also is on baricitinib for his Covid pneumonia as well as dexamethasone. Those medications will be continued. The patient's remdesivir has continued and is scheduled to run until February 13. Repeat laboratory studies have been ordered for the patient. He has been encouraged to ambulate. He will have his regular diet as tolerated. The patient should be appropriate for discharge once his oxygen demands have improved. Patient does have elevations of his trop onins and this is likely secondary to the COVID-19 pneumonia. 02/11/2021 The patient is a 60-year-old gentleman who remain in ICU secondary to his requirements for high flow oxygen. The patient is also on baricitinib as well as remdesivir. The patient's remdesivir is scheduled to run through February 13, 2021. At that time the patient may be appropriate for discharge if his oxygen demands have decreased. He will be titrated on his oxygen to keep his saturations around 92%. The patient has been doing well with his hypertension with the use of lisinopril which had been given yesterday afternoon. He did have urgent use of clonidine 0.1 mg 1 time prior to bedtime. Continue to monitor his vital signs with telemetry and his medications will be adjusted as necessary. Patient's DVT prophylaxis will continue with the use of the apixaban 10 mg p.o. twice daily. Repeat laboratory studies have been ordered. 02/12/2021 The patient is a 60-year-old gentleman who is doing better today. His oxygen will be continued to keep his saturations around 92%. Attempt to titrate. The patient is also on baricitinib and this will be continued. I had an explanation with him in regard to usage of the baricitinib. The patient is currently on dex amethasone 6 mg and this will be continued for another 7 days. The patient's blood pressure has been somewhat difficult to control and in addition to lisinopril 10 mg p.o. daily he was given clonidine 0.1 mg every 8 hours as needed for hypertension. This may resolve by time of discharge. Patient will continue with his regular diet as tolerated. He is also on remdesivir to continue until February 13, 2021. Repeat laboratory studies have been ordered. The patient is also on DVT prophylaxis with the use of apixaban.
[2021-02-12] MEDS: cloNIDine 0.1 MG Tab PO SCH ×2 (10:11→16:30)
[2021-02-12] MEDS ORDERED: Benzonatate 100 MG Cap PO PRN (11:37)
[2021-02-12] MEDS ORDERED: Sodium Chloride 0.9% 100 ML ONE (16:21)
[2021-02-12] MEDS: REMDESIVIR 100 MG in Sodium Chloride 0.9% 100 ML IV SCH (16:32)
[2021-02-13] MEDS: cloNIDine 0.1 MG Tab PO SCH ×3 (00:14→16:33)
--- NOTE | 2021-02-13 07:04 | PCM.PN ---
- General Info Date of Service: 02/13/21 Admission Dx/Problem (Free Text): Admission Diagnosis/Problem Admission Diagnosis/Problem Pneumonia due to COVID-19 Subjective Update: The patient is a 60-year-old gentleman who was admitted on February 09, 2021 due to acute respiratory failure associated with COVID-19 pneumonia. The patient today says that he feels much better. He has been breathing better. The patient has remained on high flow oxygen. The patient denies any new pain. He also has been tolerating his diet. Functional Status: Reports: Pain Controlled, Tolerating Diet. Denies: New Symptoms - Review of Systems General: Reports: No Symptoms HEENT: Reports: No Symptoms Pulmonary: Reports: No Symptoms Cardiovascular: Reports: No Symptoms Gastrointestinal: Reports: No Symptoms Genitourinary: Reports: No Symptoms Musculoskeletal: Reports: No Symptoms Skin: Reports: No Symptoms Neurological: Reports: No Symptoms Psychiatric: Reports: No Symptoms - Patient Data Vitals - Most Recent: Last Vital Signs Temp 36.4 C 02/13/21 04:00 Pulse 58 L 02/12/21 20:46 Resp 18 02/13/21 04:00 BP 147/91 H 02/13/21 04:00 Pulse Ox 92 L 02/13/21 06:22 Weight - Most Recent: 98.747 kg I&O - Last 24 Hours: Intake & Output 02/12/21 02/13/21 02/13/21 22:59 06:59 14:59 Intake Total 1765 1600 Balance 1765 1600 Lab Results Last 24 Hours: Laboratory Results - last 24 hr 02/13/21 02/13/21 Range/Units 05:15 05:15 WBC 10.22 H (4.23-9.07) K/mm3 RBC 4.15 L (4.63-6.08) M/mm3 Hgb 12.9 L (13.7-17.5) gm/dl Hct 38.1 L (40.1-51.0) % MCV 91.8 (79.0-92.2) fl MCH 31.1 (25.7-32.2) pg MCHC 33.9 (32.2-35.5) g/dl RDW Std Deviation 41.5 (35.1-43.9) fL Plt Count 239 (163-337) K/mm3 MPV 10.3 (9.4-12.3) fl Neut % (Auto) 70.1 H (34.0-67.9) % Lymph % (Auto) 19.2 L (21.8-53.1) % [place] % (Auto) 10.4 (5.3-12.2) % Eos % (Auto) 0.2 L (0.8-7.0) Baso % (Auto) 0.1 (0.1-1.2) % Neut # (Auto) 7.17 H (1.78-5.38) K/mm3 Lymph # (Auto) 1.96 (1.32-3.57) K/mm3 [place] # (Auto) 1.06 H (0.30-0.82) K/mm3 Eos # (Auto) 0.02 L (0.04-0.54) K/mm3 Baso # (Auto) 0.01 (0.01-0.08) K/mm3 Manual Slide Review Normal smear Sodium 138 (136-145) mEq/L Potassium 4.5 (3.5-5.1) mEq/L Chloride 105 (98-107) mEq/L Carbon Dioxide 24 (21-32) mEq/L Anion Gap 13.5 (5-15) BUN 23 H (7-18) mg/dL Creatinine 0.9 (0.7-1.3) mg/dL Est Cr Clr Drug Dosing 80.58 mL/min Estimated GFR (MDRD) > 60 (>60) mL/min BUN/Creatinine Ratio 25.6 H (14-18) Glucose 96 (70-99) mg/dL Calcium 8.5 (8.5-10.1) mg/dL Phosphorus 3.6 (2.6-4.7) mg/dL Magnesium 2.1 (1.8-2.4) mg/dL Total Bilirubin 0.5 (0.2-1.0) mg/dL AST 21 (15-37) U/L ALT 56 (16-63) U/L Alkaline Phosphatase 57 (46-116) U/L C-Reactive Protein 3.2 H* (<1.0) mg/dL Total Protein 6.0 L (6.4-8.2) g/dl Albumin 2.6 L (3.4-5.0) g/dl Globulin 3.4 gm/dL Albumin/Globulin Ratio 0.8 L (1-2) Med Orders - Current: Current Medications Acetaminophen (Acetaminophen 325 Mg Tab) 650 mg PO Q4H PRN PRN Reason: Pain (Mild 1-3)/fever Apixaban (Apixaban 5 Mg Tab) 10 mg PO BID [facility] Stop: 02/15/21 21:01 Last Admin: 02/12/21 20:46 Dose: 10 mg Documented by: Aspirin (Aspirin 81 Mg Tab.Ec) 81 mg PO DAILY [facility] Last Admin: 02/12/21 08:13 Dose: 81 mg Documented by: Baricitinib (Baricitinib 2 Mg Tab) 4 mg PO BEDTIME [facility] Stop: 02/22/21 21:01 Last Admin: 02/12/21 20:46 Dose: 4 mg Documented by: Benzonatate (Benzonatate 100 Mg Cap) 100 mg PO TID PRN PRN Reason: Cough Clonidine HCl (Clonidine 0.1 Mg Tab) 0.1 mg PO Q8H [facility] Last Admin: 02/13/21 00:14 Dose: Not Given Documented by: Dexamethasone (Dexamethasone 4 Mg Tab) 6 mg PO DAILY [facility] Stop: 02/18/21 09:01 Last Admin: 02/12/21 08:18 Dose: 6 mg Documented by: Sodium Chloride (Normal Saline) 100 mls @ 75 mls/hr IV ASDIRECTED [facility] Last Admin: 02/09/21 11:47 Dose: 75 mls/hr Documented by: Remdesivir 100 mg/ Sodium (Chloride) 100 mls @ 100 mls/hr IV Q24H [facility] Stop: 02/13/21 17:59 Last Admin: 02/12/21 16:32 Dose: 100 mls/hr Documented by: Lisinopril (Lisinopril 10 Mg Tab) 10 mg PO DAILY [facility] Last Admin: 02/12/21 08:14 Dose: 10 mg Documented by: Metoprolol Tartrate (Metoprolol Tartrate 5 Mg/5 Ml Sdv) 5 mg IVPUSH Q4H PRN PRN Reason: Hypertension Metoprolol Tartrate (Metoprolol Tartrate 25 Mg Tab) 25 mg PO Q12H [facility] Last Admin: 02/12/21 20:46 Dose: 25 mg Documented by: Ondansetron HCl (Ondansetron 4 Mg/2 Ml Sdv) 4 mg IV Q4H PRN PRN Reason: Nausea/Vomiting Sodium Chloride (Sodium Chloride 0.9% 10 Ml Syringe) 10 ml FLUSH ASDIRECTED PRN PRN Reason: Keep Vein Open Last Admin: 02/09/21 10:28 Dose: 10 ml Documented by: Discontinued Medications Albuterol/Ipratropium (Albuterol/Ipratropium 3.0-0.5 Mg/3 Ml Neb Soln) 3 ml NEB ONETIME ONE Stop: 02/09/21 10:03 Last Admin: 02/09/21 10:16 Dose: 3 ml Documented by: Clonidine HCl (Clonidine 0.1 Mg Tab) 0.1 mg PO ONETIME ONE Stop: 02/10/21 18:02 Last Admin: 02/10/21 18:27 Dose: 0.1 mg Documented by: Dexamethasone (Dexamethasone 4 Mg/Ml Sdv) 6 mg IVPUSH ONETIME ONE Stop: 02/09/21 13:07 Last Admin: 02/09/21 13:53 Dose: 6 mg Documented by: Hydralazine HCl (Hydralazine 20 Mg/Ml Sdv) 10 mg IVPUSH Q4H PRN PRN Reason: Hypertension Sodium Chloride (Normal Saline) 1,000 mls @ 1,000 mls/hr IV .BOLUS KT Last Admin: 02/09/21 10:28 Dose: 1,000 mls/hr Documented by: Remdesivir 200 mg/ Sodium (Chloride) 250 mls @ 250 mls/hr IV ONETIME ONE Stop: 02/09/21 13:07 Last Admin: 02/09/21 13:54 Dose: Not Given Documented by: Remdesivir 200 mg/ Sodium (Chloride) 250 mls @ 250 mls/hr IV ONETIME ONE Stop: 02/09/21 14:29 Last Admin: 02/09/21 13:53 Dose: 250 mls/hr Documented by: Sodium Chloride (Normal Saline) Confirm Administered Dose 100 mls @ as directed .ROUTE .STK-MED ONE Stop: 02/12/21 16:22 Last Admin: 02/12/21 16:30 Dose: Not Given Documented by: Iopamidol (Iopamidol 755 Mg/Ml 100 Ml Bottle) 100 ml IVPUSH ONETIME ONE Stop: 02/09/21 11:24 Last Admin: 02/09/21 11:47 Dose: 100 ml Documented by: Metoprolol Tartrate (Metoprolol Tartrate 5 Mg/5 Ml Sdv) 5 mg IVPUSH Q4H PRN PRN Reason: Tachycardia Last Admin: 02/09/21 19:35 Dose: 5 mg Documented by: Sodium Chloride (Sodium Chloride 0.9% 10 Ml Syringe) 10 ml FLUSH ONETIME PRN PRN Reason: IV FLUSH Last Admin: 02/09/21 11:47 Dose: 10 ml Documented by: - Exam Quality Assessment: Supplemental Oxygen, DVT Prophylaxis General: Alert, Oriented, Cooperative, No Acute Distress HEENT: Pupils Equal, Pupils Reactive, EOMI, Mucous Membr. Moist/[place] Neck: Supple, Trachea Midline Lungs: Clear to Auscultation, Normal Respiratory Effort Cardiovascular: Regular Rate, Regular Rhythm GI/Abdominal Exam: Normal Bowel Sounds, Soft, Non-Tender, No Distention (Male) Exam: Deferred Back Exam: Normal Inspection, Full Range of Motion Extremities: Normal Inspection, Normal Range of Motion, No Pedal Edema Skin: Warm, Dry, Intact Neurological: No New Focal Deficit, Normal Gait, Normal Speech Psy/Mental Status: Alert, Normal Affect, Normal Mood - Patient Data Lab Results Last 24 hrs: Laboratory Results - last 24 hr 02/13/21 02/13/21 Range/Units 05:15 05:15 WBC 10.22 H (4.23-9.07) K/mm3 RBC 4.15 L (4.63-6.08) M/mm3 Hgb 12.9 L (13.7-17.5) gm/dl Hct 38.1 L (40.1-51.0) % MCV 91.8 (79.0-92.2) fl MCH 31.1 (25.7-32.2) pg MCHC 33.9 (32.2-35.5) g/dl RDW Std Deviation 41.5 (35.1-43.9) fL Plt Count 239 (163-337) K/mm3 MPV 10.3 (9.4-12.3) fl Neut % (Auto) 70.1 H (34.0-67.9) % Lymph % (Auto) 19.2 L (21.8-53.1) % [place] % (Auto) 10.4 (5.3-12.2) % Eos % (Auto) 0.2 L (0.8-7.0) Baso % (Auto) 0.1 (0.1-1.2) % Neut # (Auto) 7.17 H (1.78-5.38) K/mm3 Lymph # (Auto) 1.96 (1.32-3.57) K/mm3 [place] # (Auto) 1.06 H (0.30-0.82) K/mm3 Eos # (Auto) 0.02 L (0.04-0.54) K/mm3 Baso # (Auto) 0.01 (0.01-0.08) K/mm3 Manual Slide Review Normal smear Sodium 138 (136-145) mEq/L Potassium 4.5 (3.5-5.1) mEq/L Chloride 105 (98-107) mEq/L Carbon Dioxide 24 (21-32) mEq/L Anion Gap 13.5 (5-15) BUN 23 H (7-18) mg/dL Creatinine 0.9 (0.7-1.3) mg/dL Est Cr Clr Drug Dosing 80.58 mL/min Estimated GFR (MDRD) > 60 (>60) mL/min BUN/Creatinine Ratio 25.6 H (14-18) Glucose 96 (70-99) mg/dL Calcium 8.5 (8.5-10.1) mg/dL Phosphorus 3.6 (2.6-4.7) mg/dL Magnesium 2.1 (1.8-2.4) mg/dL Total Bilirubin 0.5 (0.2-1.0) mg/dL AST 21 (15-37) U/L ALT 56 (16-63) U/L Alkaline Phosphatase 57 (46-116) U/L C-Reactive Protein 3.2 H* (<1.0) mg/dL Total Protein 6.0 L (6.4-8.2) g/dl Albumin 2.6 L (3.4-5.0) g/dl Globulin 3.4 gm/dL Albumin/Globulin Ratio 0.8 L (1-2) Result Diagrams: 02/13/21 05:15 02/13/21 05:15 Sepsis Event Note - Evaluation Sepsis Screening Result: No Definite Risk - Focused Exam Vital Signs: Vital Signs Temp Pulse Resp BP BP Pulse Ox Pulse Ox 02/13/21 06:22 92 L 02/13/21 04:00 36.4 C 18 147/91 H 91 L 02/13/21 00:14 155/78 H 02/13/21 00:00 36.6 C 20 155/78 H 92 L 02/12/21 20:46 58 L 145/81 H 02/12/21 20:16 92 L 02/12/21 20:00 36.1 C 20 145/81 H 93 L - Problem List & Annotations (1) Acute respiratory failure due to COVID-19 SNOMED Code(s): 317886637 Code(s): U07.1 - COVID-19; J96.00 - ACUTE RESPIRATORY FAILURE, UNSP W HYPOXIA OR HYPERCAPNIA Status: Acute Priority: High Current Visit: Yes (2) Pneumonia due to COVID-19 virus SNOMED Code(s): 927561880375858344 Code(s): U07.1 - COVID-19; J12.82 - PNEUMONIA DUE TO CORONAVIRUS DISEASE 2018 Status: Acute Priority: High Current Visit: Yes (3) Elevated troponin level not due to acute coronary syndrome SNOMED Code(s): 344475088, 246499813, 502881461 Code(s): R77.8 - OTHER SPECIFIED ABNORMALITIES OF PLASMA PROTEINS Status: Acute Priority: High Current Visit: Yes (4) Hypertension SNOMED Code(s): 67520074 Code(s): I10 - ESSENTIAL (PRIMARY) HYPERTENSION Status: Chronic Priority: High Current Visit: Yes Qualifiers: Hypertension type: primary hypertension Qualified Code(s): I10 - Essential (primary) hypertension - Problem List Review Problem List Initiated/Reviewed/Updated: Yes - My Orders Last 24 Hours: My Active Orders 02/12/21 09:00 cloNIDine [Catapres] 0.1 mg PO Q8H 02/12/21 11:37 Benzonatate [Tessalon Perles] 100 mg PO TID PRN - Plan Plan:: 60-year-old male with COVID-19 for symptomatic on January 28, 2021 COVID-19 pneumonia Respiratory failure * Symptomatic for 12 days * Given 1 L IV bolus, DuoNeb, dexamethasone, remdesivir in the emergency department * CTA of the chest was negative for pulmonary embolism but compatible with diffuse Covid pneumonia. * WBC of 8.76, D-dimer greater than 35, CRP 19.8, troponin 0 0.203, proBNP 244, albumin 2.9 * On high flow nasal cannula Elevated troponin consistent with type II ID Elevated blood pressure without diagnosis of hypertension * Likely secondary to increased work from tachycardia, hypoxemia, and Covid * EKG showed no acute ST-T wave changes. * No indication for cardiac catheterization. * Treat underlying cause of hypoxemia. * Repeating troponin is not beneficial. DVT within the right popliteal, posterior tibial, and peroneal veins * D-dimer was greater than 35 without a PE * Leg started swelling 2 days ago * Minimal pain. Plan * Admit to medical floor * FiO2 to keep SPO2 between 88 and 94%. Currently on high flow nasal cannula. * Metoprolol 5 mg IV every 4 hours as needed hypertension or tachycardia * Eliquis 10 mg twice daily for 7 days then 5 mg twice daily * Continue dexamethasone, remdesivir * As needed duo nebs and albuterol * Routine COVID-19 treatment protocol to include I-S, RT, prone positioning, and other * Consider baricitinib. Patient was given handout on EUA on baricitinib. Patient agreed to treatment with baricitinib. * Follow CBC, CMP, mag, Phos, CRP. No benefit from following D-dimer. * Hydralazine 10 mg IV for hypertension * CODE STATUS: Full code I spoke with patient to provide information about baricitinib. I offered the "fax sheet for patients and parents/caregivers, for baricitinib" to read and review. I stated that therapy has been approved by an emergency use authorization process and has not fully been FDA reviewed or approved. I shared potential risks from the therapy including increased risk for serious infections, anaphylaxis, and reaction to medication. I discussed there are other potential treatment options that are currently not FDA approved to treat COVID-19. Offered opportunity to ask questions and all questions were answered. Patient voiced understanding and agreed to proceed with treatment. 02/10/2021 The patient is a 60-year-old gentleman who remains on high flow oxygen. This is due to COVID-19 associated pneumonia. The patient is on apixaban from a previous DVT and this will continue with his DVT prophylaxis as well. The patient also is on baricitinib for his Covid pneumonia as well as dexamethasone. Those medications will be continued. The patient's remdesivir has continued and is scheduled to run until February 13. Repeat laboratory studies have been ordered for the patient. He has been encouraged to ambulate. He will have his regular diet as tolerated. The patient should be appropriate for discharge once his oxygen demands have improved. Patient does have elevations of his troponins and this is likely secondary to the COVID-19 pneumonia. 02/11/2021 The patient is a 60-year-old gentleman who remain in ICU secondary to his requirements for high flow oxygen. The patient is also on baricitinib as well as remdesivir. The patient's remdesivir is scheduled to run through February 13, 2021. At that time the patient may be appropriate for discharge if his oxygen demands have decreased. He will be titrated on his oxygen to keep his saturations around 92%. The patient has been doing well with his hypertension with the use of lisinopril which had been given yesterday afternoon. He did hav e urgent use of clonidine 0.1 mg 1 time prior to bedtime. Continue to monitor his vital signs with telemetry and his medications will be adjusted as necessary. Patient's DVT prophylaxis will continue with the use of the apixaban 10 mg p.o. twice daily. Repeat laboratory studies have been ordered. 02/12/2021 The patient is a 60-year-old gentleman who is doing better today. His oxygen will be continued to keep his saturations around 92%. Attempt to titrate. The patient is also on baricitinib and this will be continued. I had an explanation with him in regard to usage of the baricitinib. The patient is currently on dexamethasone 6 mg and this will be continued for another 7 days. The patient's blood pressure has been somewhat difficult to control and in addition to lisinopril 10 mg p.o. daily he was given clonidine 0.1 mg every 8 hours as needed for hypertension. This may resolve by time of discharge. Patient will continue with his regular diet as tolerated. He is also on remdesivir to continue until February 13, 2021. Repeat laboratory studies have been ordered. The patient is also on DVT prophylaxis with the use of apixaban. 02/13/2021 The patient is a 60-year-old gentleman is doing better today. I want to titrate his oxygen levels to keep his saturations around 92%. He is currently on 55% FiO2. The patient has been hypertensive stage II and he is on medication for this. The vital signs will be monitored and his medications will be adjusted as needed. Since the patient is eating and drinking I will discontinue his IV fluids. The patient will continue on his baricitinib and steroids. Repeat laboratory studies have been ordered for the morning. Its anticipated that the patient's discharge should be in 1 to 2 days depending on his oxygen demands. The patient is also on DVT prophylaxis and this will continue after discharge. The patient should continue to ambulate.
[2021-02-13] MEDS: Metoprolol Tartrate 25 MG Tab PO SCH ×2 (08:06→20:35)
[2021-02-13] MEDS: Aspirin 81 MG Tab.EC PO SCH (08:07)
[2021-02-13] MEDS: Dexamethasone 4 MG Tab PO SCH (08:07)
[2021-02-13] MEDS: Lisinopril 10 MG Tab PO SCH (08:07)
[2021-02-13] MEDS: Apixaban 5 MG Tab PO SCH ×2 (08:07→20:35)
[2021-02-13] MEDS: REMDESIVIR 100 MG in Sodium Chloride 0.9% 100 ML IV SCH (16:33)
[2021-02-14] MEDS: cloNIDine 0.1 MG Tab PO SCH ×2 (00:23→08:36)
[2021-02-14] MEDS: Metoprolol Tartrate 25 MG Tab PO SCH (08:08)
[2021-02-14] MEDS: Lisinopril 10 MG Tab PO SCH (08:34)
[2021-02-14] MEDS: Dexamethasone 4 MG Tab PO SCH (08:35)
[2021-02-14] MEDS: Apixaban 5 MG Tab PO SCH (08:35)
[2021-02-14] MEDS: Aspirin 81 MG Tab.EC PO SCH (08:35)
--- NOTE | 2021-02-14 09:10 | CR ---
Chest: Portable view of the chest was obtained. Comparison: Prior chest x-ray of 02/09/21. Diffuse increased density is seen within the right chest. Findings have slightly worsened from prior exam. Mild increased density within the left upper chest is seen which is without definite change. Heart size and mediastinum are unchanged. Bony structures are also unchanged. Impression: 1. Increasing parenchymal density within the right chest compatible with mild increasing COVID pneumonia. Please correlate. 2. Stable parenchymal densities within the left chest. 3. Other portions of the chest are stable. Diagnostic code #3
--- NOTE | 2021-02-14 12:17 | PCM.DCSUM1 ---
Discharge Summary - Hospital Course Diagnosis: Stroke: No - Discharge Data Discharge Date: 02/14/21 Discharge Disposition: Home, Self-Care 01 Condition: Good - Referral to Home Health Primary Care Physician: Keenan Luna MD - Discharge Diagnosis/Problem(s) (1) Acute respiratory failure due to COVID-19 SNOMED Code(s): 019832687 ICD Code: U07.1 - COVID-19; J96.00 - ACUTE RESPIRATORY FAILURE, UNSP W HYPOXIA OR HYPERCAPNIA Status: Acute Priority: High (2) Pneumonia due to COVID-19 virus SNOMED Code(s): 553187225435335224 ICD Code: U07.1 - COVID-19; J12.82 - PNEUMONIA DUE TO CORONAVIRUS DISEASE 2019 Status: Acute Priority: High (3) Elevated troponin level not due to acute coronary syndrome SNOMED Code(s): 778896447, 048977505, 952784619 ICD Code: R77.8 - OTHER SPECIFIED ABNORMALITIES OF PLASMA PROTEINS Status: Acute Priority: High (4) Hypertension SNOMED Code(s): 52965186 ICD Code: I10 - ESSENTIAL (PRIMARY) HYPERTENSION Status: Chronic Priority: High Qualifiers: Hypertension type: primary hypertension Qualified Code(s): I10 - Essential (primary) hypertension (5) Right leg DVT SNOMED Code(s): 656775125 ICD Code: I82.401 - ACUTE EMBOLISM AND THOMBOS UNSP DEEP VEINS OF R LOW EXTREM Status: Acute Priority: High Qualifiers: Affected thrombotic vein of extremity: tibial Chronicity: acute Qualified Code(s): I82.441 - Acute embolism and thrombosis of right tibial vein - Patient Summary/Data Hospital Course: Patient is a 60-year-old gentleman who was admitted to acute hospitalization on February 09, 2021 for COVID-19 associated pneumonia. He was also noted to have acute respiratory failure. The patient initially had been admitted to ICU secondary to the high flow oxygen required. Additionally the patient was noted to have an acute DVT of his right leg. The patient was started on apixaban. The patient initially had elevations of his troponin I of 0.203 and this had started to trend down to 0.144. This was secondary to the patient's Covid pneumonia. Also, upon initial presentation the patient C-reactive protein was markedly elevated at 19.8 mg/dL and this had normalized to 1.6 mg/dL. The patient was also started on remdesivir with 200 mg IV initially followed by 4 doses of 100 mg daily. He was also started on baricitinib 4 mg p.o. daily and this was discontinued upon release from hospital in accordance with EUA. The patient was also started on dexamethasone and this will be continued for 4 days after his discharge. On discharge the patient was noted to have mild leukocytosis which was secondary to his steroid use. The patient tolerated all of these medications well. The patient was also noted to require oxygen and he was discharged on oxygen via nasal cannula at 2 L/min. The patient was also started on treatment dose of apixaban at 10 mg p.o. twice daily for another 2 days followed by apixaban 5 mg p.o. twice daily for the next month. The patient did have difficulty with hypertension and he was also started on discharge on lisinopril/Hydrocort thiazide 20/12.5 mg to take 1 daily. The patient has been recommended to continue with activity as tolerated. He is also to have his regular heart healthy diet as tolerated. The patient has been hemodynamically stable and he has been discharged from acute hospitalization with the recommendations listed above. - Patient Instructions Diet: Heart Healthy Diet, Usual Diet as Tolerated Activity: As Tolerated Notify Provider of: Fever, Increased Pain - Discharge Plan *PRESCRIPTION DRUG MONITORING PROGRAM REVIEWED*: No *COPY OF PRESCRIPTION DRUG MONITORING REPORT IN PATIENT RUSSELL: No Prescriptions/Med Rec: dexAMETHasone [Dexamethasone] 6 mg PO DAILY #5 tablet Apixaban [Eliquis] 5 mg PO BID #60 tablet Apixaban [Eliquis] 10 mg PO BID #6 tab.ds.pk Lisinopril/Hydrochlorothiazide [Lisinopril-Hctz 20-12.5 mg Tab] 1 each PO DAILY #30 tablet Home Medications: Home Meds Apixaban [Eliquis] 5 mg PO BID #60 tablet 02/14/21 [Rx] Apixaban [Eliquis] 10 mg PO BID #6 tab.ds.pk 02/14/21 [Rx] Aspirin [Halfprin] 81 mg PO DAILY tab.ec 02/14/21 [Rx] Lisinopril/Hydrochlorothiazide [Lisinopril-Hctz 20-12.5 mg Tab] 1 each PO DAILY #30 tablet 02/14/21 [Rx] dexAMETHasone [Dexamethasone] 6 mg PO DAILY #5 tablet 02/14/21 [Rx] Oxygen Therapy Mode: Nasal Cannula Oxygen Flow Rate (L/min): 2 Patient Handouts: COVID-19 Frequently Asked Questions, COVID-19, 10 Things You Can Do to Manage Your COVID-19 Symptoms at Home - [facility] (11/03/2020), Apixaban oral tablets, Sepsis, Self Care, Adult Forms: ED Department Discharge Referrals: Keenan Luna MD [Primary Care Provider] - 02/22/21 1:00 pm (Please arrive at 12:45 for check in) - Discharge Summary/Plan Comment DC Time >30 min.: Yes Total # of Minutes for Discharge Time: 60 - General Info Date of Service: 02/14/21 Admission Dx/Problem (Free Text: Admission Diagnosis/Problem Admission Diagnosis/Problem Pneumonia due to COVID-19 Subjective Update: The patient says that he feels very good. His breathing is better. He is on 2 L of oxygen. The patient says that he can safely go home. Functional Status: Reports: Pain Controlled, Tolerating Diet. Denies: New Symptoms - Review of Systems General: Reports: No Symptoms HEENT: Reports: No Symptoms Pulmonary: Reports: No Symptoms Cardiovascular: Reports: No Symptoms Gastrointestinal: Reports: No Symptoms Genitourinary: Reports: No Symptoms Musculoskeletal: Reports: No Symptoms Skin: Reports: No Symptoms Neurological: Reports: No Symptoms Psychiatric: Reports: No Symptoms - Patient Data Vitals - Most Recent: Last Vital Signs Temp 36.4 C 02/14/21 08:00 Pulse 66 02/13/21 20:35 Resp 18 02/14/21 12:00 BP 109/65 02/14/21 12:00 Pulse Ox 92 L 02/14/21 12:00 Weight - Most Recent: 96.388 kg I&O - Last 24 hours: Intake & Output 02/13/21 02/14/21 02/14/21 22:59 06:59 14:59 Intake Total 6367 800 Balance 2079 800 Lab Results - Last 24 hrs: Laboratory Results - last 24 hr 02/14/21 02/14/21 Range/Units 05:10 05:10 WBC 11.62 H (4.23-9.07) K/mm3 RBC 4.12 L (4.63-6.08) M/mm3 Hgb 12.6 L (13.7-17.5) gm/dl Hct 37.9 L (40.1-51.0) % MCV 92.0 (79.0-92.2) fl MCH 30.6 (25.7-32.2) pg MCHC 33.2 (32.2-35.5) g/dl RDW Std Deviation 41.0 (35.1-43.9) fL Plt Count 292 (163-337) K/mm3 MPV 10.4 (9.4-12.3) fl Neut % (Auto) 69.5 H (34.0-67.9) % Lymph % (Auto) 19.1 L (21.8-53.1) % [place] % (Auto) 9.6 (5.3-12.2) % Eos % (Auto) 0.1 L (0.8-7.0) Baso % (Auto) 0.1 (0.1-1.2) % Neut # (Auto) 8.08 H (1.78-5.38) K/mm3 Lymph # (Auto) 2.22 (1.32-3.57) K/mm3 [place] # (Auto) 1.11 H (0.30-0.82) K/mm3 Eos # (Auto) 0.01 L (0.04-0.54) K/mm3 Baso # (Auto) 0.01 (0.01-0.08) K/mm3 Sodium 137 (136-145) mEq/L Potassium 4.6 (3.5-5.1) mEq/L Chloride 105 (98-107) mEq/L Carbon Dioxide 26 (21-32) mEq/L Anion Gap 10.6 (5-15) BUN 23 H (7-18) mg/dL Creatinine 1.0 (0.7-1.3) mg/dL Est Cr Clr Drug Dosing 72.53 mL/min Estimated GFR (MDRD) > 60 (>60) mL/min BUN/Creatinine Ratio 23.0 H (14-18) Glucose 109 H (70-99) mg/dL Calcium 8.6 (8.5-10.1) mg/dL Phosphorus 3.8 (2.6-4.7) mg/dL Magnesium 2.1 (1.8-2.4) mg/dL Total Bilirubin 0.4 (0.2-1.0) mg/dL AST 15 (15-37) U/L ALT 48 (16-63) U/L Alkaline Phosphatase 54 (46-116) U/L C-Reactive Protein 1.6 H* (<1.0) mg/dL Total Protein 5.9 L (6.4-8.2) g/dl Albumin 2.6 L (3.4-5.0) g/dl Globulin 3.3 gm/dL Albumin/Globulin Ratio 0.8 L (1-2) Med Orders - Current: Current Medications Acetaminophen (Acetaminophen 325 Mg Tab) 650 mg PO Q4H PRN PRN Reason: Pain (Mild 1-3)/fever Apixaban (Apixaban 5 Mg Tab) 10 mg PO BID ON LICENSE OF [facility] Stop: 02/15/21 21:01 Last Admin: 02/14/21 08:35 Dose: 10 mg Documented by: Apixaban (Apixaban 5 Mg Tab) 5 mg PO BID ON LICENSE OF [facility] Aspirin (Aspirin 81 Mg Tab.Ec) 81 mg PO DAILY ON LICENSE OF [facility] Last Admin: 02/14/21 08:35 Dose: 81 mg Documented by: Baricitinib (Baricitinib 2 Mg Tab) 4 mg PO BEDTIME ON LICENSE OF [facility] Stop: 02/22/21 21:01 Last Admin: 02/13/21 20:35 Dose: 4 mg Documented by: Benzonatate (Benzonatate 100 Mg Cap) 100 mg PO TID PRN PRN Reason: Cough Clonidine HCl (Clonidine 0.1 Mg Tab) 0.1 mg PO Q8H ON LICENSE OF [facility] Last Admin: 02/14/21 08:36 Dose: 0.1 mg Documented by: Dexamethasone (Dexamethasone 4 Mg Tab) 6 mg PO DAILY ON LICENSE OF [facility] Stop: 02/18/21 09:01 Last Admin: 02/14/21 08:35 Dose: 6 mg Documented by: Lisinopril (Lisinopril 10 Mg Tab) 10 mg PO DAILY ON LICENSE OF [facility] Last Admin: 02/14/21 08:34 Dose: 10 mg Documented by: Metoprolol Tartrate (Metoprolol Tartrate 5 Mg/5 Ml Sdv) 5 mg IVPUSH Q4H PRN PRN Reason: Hypertension Metoprolol Tartrate (Metoprolol Tartrate 25 Mg Tab) 25 mg PO Q12H ON LICENSE OF [facility] Last Admin: 02/14/21 08:08 Dose: Not Given Documented by: Ondansetron HCl (Ondansetron 4 Mg/2 Ml Sdv) 4 mg IV Q4H PRN PRN Reason: Nausea/Vomiting Sodium Chloride (Sodium Chloride 0.9% 10 Ml Syringe) 10 ml FLUSH ASDIRECTED PRN PRN Reason: Keep Vein Open Last Admin: 02/09/21 10:28 Dose: 10 ml Documented by: Discontinued Medications Albuterol/Ipratropium (Albuterol/Ipratropium 3.0-0.5 Mg/3 Ml Neb Soln) 3 ml NEB ONETIME ONE Stop: 02/09/21 10:03 Last Admin: 02/09/21 10:16 Dose: 3 ml Documented by: Clonidine HCl (Clonidine 0.1 Mg Tab) 0.1 mg PO ONETIME ONE Stop: 02/10/21 18:02 Last Admin: 02/10/21 18:27 Dose: 0.1 mg Documented by: Dexamethasone (Dexamethasone 4 Mg/Ml Sdv) 6 mg IVPUSH ONETIME ONE Stop: 02/09/21 13:07 Last Admin: 02/09/21 13:53 Dose: 6 mg Documented by: Hydralazine HCl (Hydralazine 20 Mg/Ml Sdv) 10 mg IVPUSH Q4H PRN PRN Reason: Hypertension Sodium Chloride (Normal Saline) 1,000 mls @ 1,000 mls/hr IV .BOLUS ON LICENSE OF [facility] Last Admin: 02/09/21 10:28 Dose: 1,000 mls/hr Documented by: Sodium Chloride (Normal Saline) 100 mls @ 75 mls/hr IV ASDIRECTED ON LICENSE OF [facility] Last Admin: 02/09/21 11:47 Dose: 75 mls/hr Documented by: Remdesivir 200 mg/ Sodium (Chloride) 250 mls @ 250 mls/hr IV ONETIME ONE Stop: 02/09/21 13:07 Last Admin: 02/09/21 13:54 Dose: Not Given Documented by: Remdesivir 200 mg/ Sodium (Chloride) 250 mls @ 250 mls/hr IV ONETIME ONE Stop: 02/09/21 14:29 Last Admin: 02/09/21 13:53 Dose: 250 mls/hr Documented by: Remdesivir 100 mg/ Sodium (Chloride) 100 mls @ 100 mls/hr IV Q24H ON LICENSE OF [facility] Stop: 02/13/21 17:59 Last Admin: 02/13/21 16:33 Dose: 100 mls/hr Documented by: Sodium Chloride (Normal Saline) Confirm Administered Dose 100 mls @ as directed .ROUTE .STK-MED ONE Stop: 02/12/21 16:22 Last Admin: 02/12/21 16:30 Dose: Not Given Documented by: Iopamidol (Iopamidol 755 Mg/Ml 100 Ml Bottle) 100 ml IVPUSH ONETIME ONE Stop: 02/09/21 11:24 Last Admin: 02/09/21 11:47 Dose: 100 ml Documented by: Metoprolol Tartrate (Metoprolol Tartrate 5 Mg/5 Ml Sdv) 5 mg IVPUSH Q4H PRN PRN Reason: Tachycardia Last Admin: 02/09/21 19:35 Dose: 5 mg Documented by: Sodium Chloride (Sodium Chloride 0.9% 10 Ml Syringe) 10 ml FLUSH ONETIME PRN PRN Reason: IV FLUSH Last Admin: 02/09/21 11:47 Dose: 10 ml Documented by: - Exam Quality Assessment: Reports: Supplemental Oxygen, DVT Prophylaxis General: Reports: Alert, Oriented, Cooperative, No Acute Distress HEENT: Reports: Pupils Equal, Pupils Reactive, EOMI Neck: Reports: Supple, Trachea Midline Lungs: Reports: Clear to Auscultation, Normal Respiratory Effort Cardiovascular: Reports: Regular Rate, Regular Rhythm GI/Abdominal Exam: Normal Bowel Sounds, Soft, Non-Tender, No Distention (Male) Exam: Deferred Rectal (Males) Exam: Deferred Back Exam: Reports: Normal Inspection, Full Range of Motion Extremities: Normal Inspection, Normal Range of Motion, No Pedal Edema Skin: Reports: Warm, Dry, Intact Neurological: Reports: No New Focal Deficit, Normal Gait, Normal Speech Psy/Mental Status: Reports: Alert, Normal Affect, Normal Mood
[2021-02-16] MEDS ORDERED: Apixaban 5 MG Tab PO SCH (09:00)
== END 2021-02-14 13:30 | disposition home or self-care (01) | DRG 177 ==
LOC: JD.ED 09:21 → JD.ICU 15:39 → JD.MS 02-12 10:56 → JD.ICU 02-12 11:05
PROVIDERS: ADMIT Family Medicine; ATTEND Family Medicine
PROC: 8E0ZXY6 Isolation (ICD-10-PCS; principal; 2021-02-09)
PROC: XW033E5 Introduction of Remdesivir Anti-infective into Peripheral Vein, Percutaneous Approach, New Technology Group 5 (ICD-10-PCS; principal; 2021-02-09)
PROC: XW0DXM6 Introduction of Baricitinib into Mouth and Pharynx, External Approach, New Technology Group 6 (ICD-10-PCS; 2021-02-09)
PROC: 3E0333Z Introduction of Anti-inflammatory into Peripheral Vein, Percutaneous Approach (ICD-10-PCS; 2021-02-09)
PROC: 5A0945A Assistance with Respiratory Ventilation, 24-96 Consecutive Hours, High Flow/Velocity Cannula (ICD-10-PCS; 2021-02-09)
PROC: 3E0DX3Z Introduction of Anti-inflammatory into Mouth and Pharynx, External Approach (ICD-10-PCS; 2021-02-12)
DX: U07.1 COVID-19 (principal); J12.82 Pneumonia due to coronavirus disease 2019; J96.01 Acute respiratory failure with hypoxia; I21.A1 Myocardial infarction type 2; I82.441 Acute embolism and thrombosis of right tibial vein; R79.89 Other specified abnormal findings of blood chemistry; H54.7 Unspecified visual loss; G47.30 Sleep apnea, unspecified; M10.9 Gout, unspecified; M16.12 Unilateral primary osteoarthritis, left hip; R03.0 Elevated blood-pressure reading, without diagnosis of hypertension; R77.8 Other specified abnormalities of plasma proteins; Z79.01 Long term (current) use of anticoagulants; Z79.82 Long term (current) use of aspirin; Z79.899 Other long term (current) drug therapy; Z86.16 Personal history of COVID-19; Z86.19 Personal history of other infectious and parasitic diseases; Z87.891 Personal history of nicotine dependence
CPT/HCPCS: 36415; 71045; 71045-26; 71275; 71275-26; 80053; 83605; 83735; 83880; 84100; 84484; 85025; 85379; 85610; 85730; 86140; 93005; 93971-26-RT; 93971-RT; 94640; 96374; 99285-25; A9270-GY; J1100; J3490; J7030; J7050; J7620-GY; J8540; Q9967

== ENCOUNTER 2022-03-28 22:01 | Emergency (ER) | payer OTHER ==
[2022-03-28] MEDS ORDERED: Sodium Chloride 0.9% 1,000 ML IV ONE (22:53)
[2022-03-28] MEDS ORDERED: Ondansetron 8 MG in Sodium Chloride 0.9% 50 ML IV ONE (22:53)
[2022-03-28] MEDS ORDERED: Morphine 2 MG/ML SYRINGE IVPUSH ONE (22:55)
[2022-03-28] MEDS ORDERED: Ondansetron 4 MG/2 ML SDV IVPUSH ONE (23:22)
[2022-03-28] MEDS ORDERED: HYDROmorphone 1 MG/ML Syringe IVPUSH ONE (23:43)
[2022-03-29] MEDS ORDERED: Tamsulosin 0.4 MG Cap.ER PO ONE (00:25)
[2022-03-29] MEDS ORDERED: Acetaminophen/oxyCODONE 325-5 MG Tab PO ONE (00:44)
== END 2022-03-29 00:59 | disposition home or self-care (01) ==
LOC: MERGE 22:01 → JD.ED 22:01
DX: N13.2 Hydronephrosis with renal and ureteral calculous obstruction (principal); Z79.01 Long term (current) use of anticoagulants; Z79.899 Other long term (current) drug therapy; Z86.16 Personal history of COVID-19
CPT/HCPCS: 36415; 74176; 80053; 85025; 96361; 96374; 96375; 99284; A9270; J1170; J2270; J2405; J7030